=== PATIENT | male | born 1960 | race Caucasian/White ===

== ENCOUNTER → 2020-10-06 13:41 | Outpatient (BNVA) | payer OTHER, SELFPAY | PROVIDERS: PCP Internal Medicine; Visit Provider Surgery Vascular Surgery ==

== ENCOUNTER 2023-03-15 14:53 | Outpatient (AMB) | payer OTHER, SELFPAY ==
--- NOTE | 2023-03-15 14:56 | A.OFFVIS_ITS ---
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 Estevez. He has a past medical history of hyperlipidemia, hypertension, and cardiac valve repair. He presents to the office today as a new patient for an elevated PSA. In discussion with the patient today reports to be doing and feeling well. He reports having annual blood work with his PCP and noting an elevated PSA thus his referral here. In review of patient's chart it appears PSA 02/25--6.0. He reports previously following up with Dr. Austin in the past for other urological issues. When asked he does report episodes of nocturia however relates this to drinking his seltzer water prior to bed. He otherwise denies no urinary issues or concerns at this time. When asked he denies urinary urgency, urinary frequency, incontinence, hematuria, dysuria, foul smelling urine, changes to urinary stream, flank pain, fever, and or chills. He is happy with his current voiding parameters. In office urinalysis results reviewed with the patient today. Discussed redraw of PSA with no sex the night before, no caffeine morning of, and no heavy lifting 1-2 days prior. SHAILA offered however deferred. Discussed at length potential causes for elevated PSA. Patient discusses also having a home at the [facility] where he likes to spend most of his time. Patient otherwise denies any other issues or concerns at this time. Review of Systems Const All systems reviewed & are unremarkable except as noted in HPI and below Reports no additional complaints Eyes Reports no additional complaints ENT Reports no additional complaints Card Reports as per HPI Resp Reports no additional complaints GI Reports no additional complaints Reports as per HPI Musc Reports no additional complaints Neuro Reports no additional complaints Psych Reports no additional complaints Endo Reports no additional complaints Fabricio/Lymph Reports no additional complaints Aller/Immun Reports no additional complaints Physical Exam Const General: cooperative, healthy appearing, comfortable, no acute distress, well developed, alert and awake Orientation/consciousness: patient oriented x3 Limitations: no limitations HEENT Head: Yes normal to inspection, Yes normocephalic and Yes atraumatic Ears: hearing grossly normal bilaterally Eyes General: appearance normal, both eyes and all related structures Neck Neck: Yes normal visual inspection and Yes trachea midline Chest Chest palpation & inspection: normal inspection of the chest Resp Effort & Inspection: normal respiratory effort and able to speak in complete sentences Cardio Rate: regular rate GI Inspection: Yes normal to inspection General: Yes no CVA tenderness Back/Spine/Pelvis Back: no CVA tenderness Skin General skin exam: no rashes or lesions noted Neuro General: patient oriented x3 Extrem General: Yes normal to inspection Psych Appearance: grossly normal and well kempt Mental Status: mental status grossly normal Speech and movement: Normal speech and movement present and Clear speech present Affect: normal affect Attitude: cooperative Thought process: Normal thought process present Thought content: Normal thought content present Insight: Fair insight present (Psych) Judgement: Fair judgement present (Psych) Results AMB Urinalysis, Automated UA Leukoctes 0 Britta/uL Last Edit by Cloak on 03/15/23 15:13 UA Nitrite Negative Last Edit by Cloak on 03/15/23 15:13 UA Urobilinogen 1 mg/dL Last Edit by Cloak on 03/15/23 15:13 UA Protein 0 mg/dL Last Edit by Cloak on 03/15/23 15:13 UA pH 6.0 Last Edit by Cloak on 03/15/23 15:13 UA Blood 0 Robinson/uL Last Edit by Cloak on 03/15/23 15:13 UA Specific [place] 1.015 Last Edit by Cloak on 03/15/23 15:13 UA Ketone Negative Last Edit by Cloak on 03/15/23 15:13 UA Bilirubin 0 mg/dL Last Edit by Cloak on 03/15/23 15:13 UA Glucose 0 mg/dL Last Edit by Cloak on 03/15/23 15:13 Results Reviewed Results Reviewed: Laboratory Last Values Urine pH (Auto) 6.0 03/15/23 14:57 Specific [place] (Auto) 1.015 03/15/23 14:57 Urine Protein (Auto) 0 mg/dL 03/15/23 14:57 Glucose (UA)(Auto) 0 mg/dL 03/15/23 14:57 Urine Ketones (Auto) Negative 03/15/23 14:57 Urine Blood (Auto) 0 Robinson/uL 03/15/23 14:57 Urine Nitrite (Auto) Negative 03/15/23 14:57 Urine Bilirubin (Auto) 0 mg/dL 03/15/23 14:57 Urine Urobilinogen (Auto) 1 mg/dL 03/15/23 14:57 Leukocyte Esterase (Auto) 0 Britta/uL 03/15/23 14:57 Assessment & Plan Assessment & Plan (1) Elevated PSA: Code(s): R97.20 - Elevated prostate specific antigen [PSA] (2) Nocturia: Code(s): R35.1 - Nocturia Plan In office urinalysis results reviewed with the patient today; as noted above. Discussed at length potential causes for elevated PSA. Discussed obtaining redraw of PSA with no sex the night before, no heavy lifting 24-48 hours prior to lab draw, and no caffeine morning of lab draw. Discussed obtaining retroperitoneal ultrasound for further assessment evaluation. SHAILA offered however deferred. Patient denies any bothersome urinary issues Patient reports be happy with current voiding parameters. Follow-up in 1 month with labs and imaging to be completed prior; or sooner with any issues, concerns, and or questions. Orders: Orders AMB Urinalysis Automated Today Z13.9 - Encounter for screening, unspecified Coding Level of Care Code New Pt Level 3 (99523) Diagnoses Elevated PSA R97.20 Nocturia R35.1
== END 2023-03-15 15:32 | disposition home or self-care (01) ==
PROVIDERS: PCP Internal Medicine; Visit Provider Nurse Practitioner Family
DX: R97.20 Elevated prostate specific antigen [PSA] (principal); R35.1 Nocturia
CPT/HCPCS: 99203

== ENCOUNTER → 2023-03-15 14:53 | Outpatient (BNVA) | payer OTHER, SELFPAY | PROVIDERS: PCP Internal Medicine; Visit Provider Nurse Practitioner Family | DX: R97.20 Elevated prostate specific antigen [PSA] (principal); R35.1 Nocturia | CPT/HCPCS: 81003 ==

== ENCOUNTER 2023-03-16 09:35 | Outpatient (REF) | payer OTHER, SELFPAY ==
[2023-03-20 11:33] LABS: Free Prostate Spec Ag 0.9 ng/mL; Percent Free Prostate Spec Ag 24 % (calc) (>25); Prostate Specific Ag Total 3.8 ng/mL (< OR = 4.0)
== END 2023-03-16 09:36 | disposition home or self-care (01) ==
LOC: HO.10HDL 09:35
PROVIDERS: Visit Provider Nurse Practitioner Family
DX: R97.20 Elevated prostate specific antigen [PSA] (principal); Z12.5 Encounter for screening for malignant neoplasm of prostate
CPT/HCPCS: 36415; 84153; 84154

== ENCOUNTER 2023-03-31 13:54 | Outpatient (REF) | payer OTHER, SELFPAY ==
--- NOTE | ~2023-03-31 | US_ITS ---
EXAMINATION: US RETROPERITONEAL COMPLETE (RENAL) CLINICAL INFORMATION: Nocturia. COMPARISON: None available. TECHNIQUE: Real-time imaging of the kidneys and bladder. Limited visualization due to bowel gas. FINDINGS: RIGHT KIDNEY: 12.7 x 6.7 x 5.3 cm (SAG x AP x TRV). No hydronephrosis. No renal calculi. Renal cortical thickness is normal. Limited visualization. There is a 1.1 cm lateral cyst with benign features. There is a 0.7 cm medial midpole cyst with benign features. Lateral 1.1 cm exophytic midpole cyst with benign features. There is no indication for follow up imaging. LEFT KIDNEY: 12.4 x 6.3 x 5.1 cm (SAG x AP x TRV). No hydronephrosis. No renal calculi. Renal cortical thickness is normal. Limited visualization. Lower pole 0.8 cm cyst with benign features. There is no indication for follow up imaging. BLADDER: Well distended. Diffuse thickening and irregularity with trabeculation of the bladder wall. Bilateral ureteral jets are demonstrated. Prevoid bladder volume is 404 mL. Postvoid bladder volume is 41 mL. ADDITIONAL FINDINGS: Prostate volume 59 mL. US/US retroperitoneal comp IMPRESSION: 1. No hydronephrosis. No renal calculi. 2. Diffuse thickening and irregularity with trabeculation of the bladder wall. Enlarged prostate with volume 59 mL. Postvoid bladder volume 41 mL.
== END 2023-03-31 13:55 | disposition home or self-care (01) ==
LOC: HO.US 13:54
PROVIDERS: PCP Internal Medicine; Visit Provider Nurse Practitioner Family
DX: R35.1 Nocturia (principal)
CPT/HCPCS: 76770

== ENCOUNTER 2023-04-14 08:43 | Outpatient (AMB) | payer OTHER, SELFPAY ==
--- NOTE | 2023-04-14 09:04 | A.OFFVIS_ITS ---
Intake Intake Visit Reasons: 4w/US/PSA(set) Intake Note: Patient is Present for Follow Up us/psa/pvr Urology Medication: none Antibiotic Allergies:none Blood Thinners:none PVR: Allergies No Known Allergies Allergy (Verified 04/14/23 11:32) Medication List - Last Reconciled 04/14/23 by SHAJI Jaramillo-JONNY carvedilol mg PO finasteride 5 mg PO DAILY 90 days lisinopril 20 mg PO DAILY pravastatin 80 mg PO DAILY HPI HPI Comments History of Present Illness Details Tom is a very pleasant 62-year-old male patient of Dr. Estevez who was accompanied with his significant other at today's office visit. He has a past medical history of hyperlipidemia, hypertension, and cardiac valve repair. He presents to the office today for follow-up. Of note, patient was seen approximately 1 month ago as a new patient for an elevated PSA at which time a retroperitoneal ultrasound was ordered for further assessment evaluation and a redraw of the patient's PSA. These results reviewed with the patient and his significant other today. Right kidney with no hydronephrosis or calculi. There is a 1.1 cm lateral cyst with benign features. There is a 0.7 cm medial midpole cyst with benign features. Lateral 1.1 cm exophytic midpole cyst with benign features. There is no indication for follow up imaging per radiology report. Left kidney with no hydronephrosis or renal calculi. Lower pole 0.8 cm cyst with benign features. There is no indication for follow up imaging per radiology report. The bladder is well distended. Diffuse thickening and irregularity which trabeculations of the bladder wall. Bilateral ureteral jets are demonstrated. Pre void bladder volume is approximately 400 mL. Postvoid bladder volume is approximately 40 mL. Prostate volume is approximately 60 mL. PSAs are as follows: 02/25--6.0 03/27--4.6 % free 24% In discussion with the patient today reports to be doing and feeling well. Discussed at length potential causes of elevated PSA. PCPT risk calculator reviewed with the patient and his significant other today. 83% chance prostate biopsy negative, 13% biopsy with low-grade prostate cancer, and 4% high-grade prostate cancer. When asked he does report episodes of nocturia however relates this to drinking his seltzer water prior to bed. He otherwise denies no urinary issues or concerns at this time. When asked he denies urinary urgency, urinary frequency, incontinence, hematuria, dysuria, foul smelling urine, changes to urinary stream, flank pain, fever, and or chills. He is happy with his current voiding parameters. In office urinalysis results reviewed with the patient today. Discussed at length risks and benefits of surveillance monitoring verses prostate biopsy verses trial finasteride. He otherwise offers no issues or concerns at this time. Review of Systems Const All systems reviewed & are unremarkable except as noted in HPI and below Reports no additional complaints Eyes Reports no additional complaints ENT Reports no additional complaints Card Reports as per HPI Resp Reports no additional complaints GI Reports no additional complaints Reports as per HPI Musc Reports no additional complaints Neuro Reports no additional complaints Psych Reports no additional complaints Endo Reports no additional complaints Fabricio/Lymph Reports no additional complaints Aller/Immun Reports no additional complaints Physical Exam Const General: cooperative, healthy appearing, comfortable, no acute distress, well developed, alert and awake Orientation/consciousness: patient oriented x3 Limitations: no limitations HEENT Head: Yes normal to inspection, Yes normocephalic and Yes atraumatic Ears: hearing grossly normal bilaterally Eyes General: appearance normal, both eyes and all related structures Neck Neck: Yes normal visual inspection and Yes trachea midline Chest Chest palpation & inspection: normal inspection of the chest Resp Effort & Inspection: normal respiratory effort and able to speak in complete sentences Cardio Rate: regular rate GI Inspection: Yes normal to inspection General: Yes no CVA tenderness Back/Spine/Pelvis Back: no CVA tenderness Skin General skin exam: no rashes or lesions noted Neuro General: patient oriented x3 Extrem General: Yes normal to inspection Psych Appearance: grossly normal and well kempt Mental Status: mental status grossly normal Speech and movement: Normal speech and movement present and Clear speech present Affect: normal affect Attitude: cooperative Thought process: Normal thought process present Thought content: Normal thought content present Insight: Fair insight present (Psych) Judgement: Fair judgement present (Psych) Results Reviewed Results Reviewed: Date of Service: 03/31/23 Procedure(s): US retroperitoneal comp EXAMINATION: US RETROPERITONEAL COMPLETE (RENAL) FINDINGS: RIGHT KIDNEY: 12.7 x 6.7 x 5.3 cm (SAG x AP x TRV). No hydronephrosis. No renal calculi. Renal cortical thickness is normal. Limited visualization. There is a 1.1 cm lateral cyst with benign features. There is a 0.7 cm medial midpole cyst with benign features. Lateral 1.1 cm exophytic midpole cyst with benign features. There is no indication for follow up imaging. LEFT KIDNEY: 12.4 x 6.3 x 5.1 cm (SAG x AP x TRV). No hydronephrosis. No renal calculi. Renal cortical thickness is normal. Limited visualization. Lower pole 0.8 cm cyst with benign features. There is no indication for follow up imaging. BLADDER: Well distended. Diffuse thickening and irregularity with trabeculation of the bladder wall. Bilateral ureteral jets are demonstrated. Prevoid bladder volume is 404 mL. Postvoid bladder volume is 41 mL. ADDITIONAL FINDINGS: Prostate volume 59 mL. IMPRESSION: 1. No hydronephrosis. No renal calculi. 2. Diffuse thickening and irregularity with trabeculation of the bladder wall. Enlarged prostate with volume 59 mL. Postvoid bladder volume 41 mL. Assessment & Plan Assessment & Plan (1) Elevated PSA: Code(s): R97.20 - Elevated prostate specific antigen [PSA] (2) Renal cyst: Code(s): N28.1 - Cyst of kidney, acquired (3) Bladder trabeculation: Code(s): N32.89 - Other specified disorders of bladder Plan In office urinalysis results reviewed with the patient today; as noted above. PVR 0 mL. Recent retroperitoneal ultrasound results reviewed with the patient today; as noted above. Recent PSA results reviewed with the patient today; as noted above. Discussed at length potential causes for elevated PSA. Discussed at length surveillance monitoring versus prostate biopsy verses trial finasteride; discussed risks and benefits of these interventions at length. Patient denies any bothersome urinary issues or concerns at this time. Patient reports be happy with current voiding parameters. Start finasteride as discussed and prescribed. Will obtain PSA in 4 months. Follow-up in 4 months with imaging to be completed prior; or sooner with any issues, concerns, and or questions. Orders: Orders AMB Urinalysis Automated 04/14/23 Z13.9 - Encounter for screening, unspecified AMB Post Void Residual by ultrasound 04/14/23 R35.1 - Nocturia PSA,Total (Free>4and<10) 4 Months R97.20 - Elevated prostate specific antigen [PSA] Medications: New finasteride 5 mg PO DAILY 90 tabs 1RF 90 days N40.1 - Benign prostatic hyperplasia with lower urinary tract symptoms, R33.9 - Retention of urine, unspecified Patient Instructions: The patient had an opportunity to ask questions regarding the treatment plan. All questions were answered. Physical exam, labs, and imaging were discussed and reviewed in detail. As well as risks, benefits, and discussion of treatment choices. No major barriers to understanding were identified. The patient expressed understanding and agreement with the above treatment plan. The patient was made aware they should contact our office by phone for worsening of their current condition, the appearance of new symptoms, or with any questions or concerns. Compliance is encouraged with any medications and follow up testing that is ordered. It is a privilege to be allowed the opportunity to participate in? your urological care.? Again, if you have any questions or concerns If you have any questions or concerns please do not hesitate to contact me. The office is [phone]. This note is constructed using voice recognition software. While every effort has been made to ensure accuracy district sales representative errors may have been included. Yours sincerely, BALTA Jaramillo Coding Level of Care Code Est Pt Level 4 (41683) Diagnoses Elevated PSA R97.20 Renal cyst N28.1 Bladder trabeculation N32.89
== END 2023-04-14 09:43 | disposition home or self-care (01) ==
PROVIDERS: PCP Internal Medicine; Visit Provider Nurse Practitioner Family
DX: R97.20 Elevated prostate specific antigen [PSA] (principal); N28.1 Cyst of kidney, acquired; N32.89 Other specified disorders of bladder
CPT/HCPCS: 99214

== ENCOUNTER → 2023-04-14 08:43 | Outpatient (BNVA) | payer OTHER, SELFPAY | PROVIDERS: PCP Internal Medicine; Visit Provider Nurse Practitioner Family ==

== ENCOUNTER 2023-08-15 11:31 | Outpatient (REF) | payer OTHER, SELFPAY ==
[2023-08-15 13:38] LABS: PSA,Total (Free>4and<10) 4.99 ng/mL (0.00-4.00)
[2023-08-17 11:08] LABS: Free Prostate Spec Ag 0.7 ng/mL; Percent Free Prostate Spec Ag 16 % (calc) (>25); Prostate Specific Ag Total 4.4 ng/mL (< OR = 4.0)
== END 2023-08-15 11:32 | disposition home or self-care (01) ==
LOC: HO.LAB 11:31
PROVIDERS: PCP Internal Medicine; Visit Provider Nurse Practitioner Family
DX: Z12.5 Encounter for screening for malignant neoplasm of prostate (principal); R97.20 Elevated prostate specific antigen [PSA]
CPT/HCPCS: 36415; 84153; 84154

== ENCOUNTER 2023-08-17 08:33 | Outpatient (AMB) | payer OTHER, SELFPAY ==
--- NOTE | 2023-08-17 08:34 | A.OFFVIS_ITS ---
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 Estevez. He has a past medical history of hyperlipidemia, hypertension, and cardiac valve repair. He is being follow-up on via video telehealth for his elevated PSA. Of note, patient was seen approximately 4 months ago at which time he was started on finasteride 5 mg daily. Recent PSA results reviewed with the patient and his significant other today. PSAs are as follows 02/25--6.0 03/27--4.6 % free 24% 08/25--5.0 % free 16% In discussion with the patient today reports to be doing and feeling well. D iscussed at length potential causes of elevated PSA. When asked he does report compliance with 5 mg of finasteride prescribed. PCP T risk calculator reviewed 65% chance prostate biopsy is negative for cancer, 27% chance of low-grade prostate cancer, and 8% chance of high-grade prostate cancer. Discussed further treatment options with prostate biopsy verses prostate MRI versus surveillance monitoring. These interventions were discussed at length. Risks and benefits of these interventions were discussed. He otherwise denies urinary urgency, urinary frequency, incontinence, hematuria, dysuria, foul smelling urine, changes to urinary stream, flank pain, fever, and or chills. He is happy with his current voiding parameters. He offers no issues or concerns at this time. Review of Systems Const All systems reviewed & are unremarkable except as noted in HPI and below Reports no additional complaints Eyes Reports no additional complaints ENT Reports no additional complaints Card Reports as per HPI Resp Reports no additional complaints GI Reports no additional complaints Reports as per HPI Musc Reports no additional complaints Neuro Reports no additional complaints Psych Reports no additional complaints Endo Reports no additional complaints Fabricio/Lymph Reports no additional complaints Aller/Immun Reports no additional complaints Physical Exam Const General: cooperative, healthy appearing, comfortable, no acute distress, well developed, alert and awake Orientation/consciousness: patient oriented x3 Limitations: no limitations Resp Effort & Inspection: normal respiratory effort and able to speak in complete sentences Neuro General: patient oriented x3 Psych Appearance: grossly normal and well kempt Mental Status: mental status grossly normal Speech and movement: Normal speech and movement present and Clear speech present Affect: normal affect Attitude: cooperative Thought process: Normal thought process present Thought content: Normal thought content present Insight: Fair insight present (Psych) Judgement: Fair judgement present (Psych) Assessment & Plan Assessment & Plan (1) Elevated PSA: Code(s): R97.20 - Elevated prostate specific antigen [PSA] (2) Bladder trabeculation: Code(s): N32.89 - Other specified disorders of bladder (3) Nocturia: Code(s): R35.1 - Nocturia Plan Recent PSA results reviewed with the patient and his significant other today; as noted above. Discussed at length potential causes for elevated PSA Discussed further treatment options with MRI versus prostate biopsy; this was discussed at [facility]; risks and benefits of these interventions were discussed. Will obtain redraw of PSA with no sex the night before, no caffeine morning of, and no heavy lifting 1-2 days prior. Continue finasteride 5 mg daily as discussed and prescribed. He otherwise denies any bothersome urinary issues or concerns. He reports be happy with current voiding parameters. Will obtain MRI of the prostate Follow-up in 4-8 weeks with imaging and labs to be completed prior; or sooner with any issues, concerns, and or questions. Orders: Orders PSA,Total (Free>4and<10) Today R97.20 - Elevated prostate specific antigen [PSA] Patient Instructions: The patient had an opportunity to ask questions regarding the treatment plan. All questions were answered. Physical exam, labs, and imaging were discussed and reviewed in detail. As well as risks, benefits, and discussion of treatment choices. No major barriers to understanding were identified. The patient expressed understanding and agreement with the above treatment plan. The patient was made aware they should contact our office by phone for worsening of their current condition, the appearance of new symptoms, or with any questions or concerns. Compliance is encouraged with any medications and follow up testing that is ordered. It is a privilege to be allowed the opportunity to participate in? your urological care.? Again, if you have any questions or concerns If you have any questions or concerns please do not hesitate to contact me. The office is [phone]. This note is constructed using voice recognition software. While every effort has been made to ensure accuracy manufacturing engineer assembly errors may have been included. Yours sincerely, AJIT Jaramillo Telehealth Telehealth Location of provider rendering services: practice address Location of patient: address on file Patient Identification confirmed using: Name, : Yes Telehealth method: video Patient verbally consented to treatment: Yes Patient verbally consented to billing insurance company: Yes Patient informed of any privacy concerns related to visit: Yes Minutes spent on Phone/Video with Pt.: 25 Coding Level of Care Code Tele Est Pt Level 4 (38574) Diagnoses Elevated PSA R97.20 Bladder trabeculation N32.89 Nocturia R35.1
== END 2023-08-17 09:29 | disposition home or self-care (01) ==
LOC: HO.HUSH 08:34
PROVIDERS: PCP Internal Medicine; Referring Provider Internal Medicine; Visit Provider Nurse Practitioner Family
DX: R97.20 Elevated prostate specific antigen [PSA] (principal); N32.89 Other specified disorders of bladder; R35.1 Nocturia
CPT/HCPCS: 99213

== ENCOUNTER → 2023-08-17 08:33 | Outpatient (BNVA) | payer OTHER, SELFPAY | PROVIDERS: PCP Internal Medicine; Visit Provider Nurse Practitioner Family ==

== ENCOUNTER 2023-10-05 10:13 | Outpatient (REF) | payer OTHER, SELFPAY ==
[2023-10-05 11:27] LABS: PSA,Total (Free>4and<10) 5.07 ng/mL (0.00-4.00)
[2023-10-09 12:33] LABS: Free Prostate Spec Ag 0.6 ng/mL; Percent Free Prostate Spec Ag 13 % (calc) (>25); Prostate Specific Ag Total 4.8 ng/mL (< OR = 4.0)
== END 2023-10-05 10:14 | disposition home or self-care (01) ==
LOC: HO.LAB 10:13
PROVIDERS: PCP Internal Medicine; Visit Provider Nurse Practitioner Family
DX: Z12.5 Encounter for screening for malignant neoplasm of prostate (principal); R97.20 Elevated prostate specific antigen [PSA]
CPT/HCPCS: 36415; 84153; 84154

== ENCOUNTER 2023-11-21 11:45 | Outpatient (AMB) | payer OTHER, SELFPAY ==
--- NOTE | 2023-11-21 11:41 | A.OFFVIS_ITS ---
Intake Visit Reasons: 2M follow up/ Labs/MRI Intake Note: Patient presents for follow up labs and MRI results PSA: 4.8 Imagin10/13/23 Urology Medication: Finasteride Antibiotic Allergies:none Blood Thinners: Aspirin Tiltrotor Crew Chief Required: No Accompanied by: Unknown Allergies No Known Allergies Allergy (Verified 11/21/23 12:20) Medication List - Last Reconciled 11/21/23 by SHAJI Jaramillo- aspirin 81 mg PO DAILY carvedilol 12.5 mg PO BID finasteride 5 mg PO DAILY 90 days lisinopril 10 mg PO DAILY rosuvastatin 40 mg PO DAILY HPI Comments Details: Tom is a very pleasant 63-year-old male patient of Dr. Estevez who was accompanied by his significant other at today's office visit. He has a past medical history of hyperlipidemia, hypertension, and cardiac valve repair. He presents to the office today for follow-up of his elevated PSA. Recent PSA and MRI results reviewed with the patient today. Ill-defined T2 hypointense lesion with obscured margins measuring 1.7 cm in the left posterior lateral mid gland with moderate ADC and visualize signal abnormality (PI-RADS 3). In discussion with the patient today he reports compliance with finasteride 5 mg daily as pr escribed. Discussed at length surveillance monitoring verses prostate that biopsy. Risks and benefits of these interventions were discussed at length. All questions were answered. PSAs are as follows: 02/25 6.0, 03/27 3.8 % free 24%, 08/26 5.0 % free 16%, 10/26 5.1 % free 13%. In discussion with the patient today reports to be doing and feeling well. Discussed at length potential causes of elevated PSA. He otherwise denies urinary urgency, urinary frequency, incontinence, hematuria, dysuria, foul smelling urine, changes to urinary stream, flank pain, fever, and or chills. He is happy with his current voiding parameters. Previous workup has included a retroperitoneal ultrasound noting bilateral kidneys with no hydronephrosis and no renal calculi. There is a 1.1 cm lateral cyst with benign features. There is a 0.7 cm medial midpole cyst with benign features. Lateral 1.1 cm exophytic midpole cyst with benign features. There is no indication for follow up imaging. Per radiology report. The bladder is well distended. Diffuse thickening and irregularity with trabeculations. Bilateral ureteral jets are demonstrated. Pre void bladder volume is approximately 400 mL. Postvoid bladder volume is approximately 40 mL. Prostate volume is approximately 60 mL. He offers no issues or concerns at this time. Review of Systems Const All systems reviewed & are unremarkable except as noted in HPI and below Reports no additional complaints Eyes Reports no additional complaints ENT Reports no additional complaints Card Reports as per HPI Resp Reports no additional complaints GI Reports no additional complaints Reports as per HPI Musc Reports no additional complaints Neuro Reports no additional complaints Psych Reports no additional complaints Endo Reports no additional complaints Fabrciio/Lymph Reports no additional complaints Aller/Immun Reports no additional complaints Physical Exam Const General: cooperative, healthy appearing, comfortable, no acute distress, well developed, alert and awake Nutritional Appearance: average body habitus Orientation/consciousness: patient oriented x3 Limitations: no limitations HEENT Head: Yes normal to inspection, Yes normocephalic and Yes atraumatic Ears: hearing grossly normal bilaterally Eyes General: appearance normal, both eyes and all related structures Neck Neck: Yes normal visual inspection and Yes trachea midline Chest Chest palpation & inspection: normal inspection of the chest Resp Effort & Inspection: normal respiratory effort and able to speak in complete sentences Cardio Rate: regular rate GI Inspection: Yes normal to inspection General: Yes no CVA tenderness Back/Spine/Pelvis Back: no CVA tenderness Skin General skin exam: no rashes or lesions noted Neuro General: patient oriented x3 Extrem General: Yes normal to inspection Psych Appearance: grossly normal and well kempt Mental Status: mental status grossly normal Speech and movement: Normal speech and movement present and Clear speech present Affect: normal affect Attitude: cooperative Thought process: Normal thought process present Thought content: Normal thought content present Insight: Fair insight present (Psych) Judgement: Fair judgement present (Psych) Results AMB Urinalysis, Automated UA Leukoctes 0 Britta/uL Last Edit by [email or web address] on 11/21/23 12:09 UA Nitrite Negative Last Edit by [email or web address] on 11/21/23 12:09 UA Urobilinogen 0.2 mg/dL Last Edit by [employer] on 11/21/23 12:09 UA Protein 0 mg/dL Last Edit by [employer] on 11/21/23 12:09 UA pH 6.0 Last Edit by [employer] on 11/21/23 12:09 UA Blood 0 Robinson/uL Last Edit by Andrew Blum on 11/21/23 12:09 UA Specific [place] 1.010 Last Edit by Andrew Blum on 11/21/23 12:09 UA Ketone Negative Last Edit by Andrew Blum on 11/21/23 12:09 UA Bilirubin 0 mg/dL Last Edit by Andrew Blum on 11/21/23 12:09 UA Glucose 0 mg/dL Last Edit by Andrew Blum on 11/21/23 12:09 Results Reviewed Results Reviewed: Laboratory Last Values Urine pH (Auto) 6.0 11/21/23 11:43 Specific [place] (Auto) 1.010 11/21/23 11:43 Urine Protein (Auto) 0 mg/dL 11/21/23 11:43 Glucose (UA)(Auto) 0 mg/dL 11/21/23 11:43 Urine Ketones (Auto) Negative 11/21/23 11:43 Urine Blood (Auto) 0 Robinson/uL 11/21/23 11:43 Urine Nitrite (Auto) Negative 11/21/23 11:43 Urine Bilirubin (Auto) 0 mg/dL 11/21/23 11:43 Urine Urobilinogen (Auto) 0.2 mg/dL 11/21/23 11:43 Leukocyte Esterase (Auto) 0 Britta/uL 11/21/23 11:43 Assessment & Plan Assessment & Plan (1) Bladder trabeculation: Code(s): N32.89 - Other specified disorders of bladder Category: Medical (2) Renal cyst: Code(s): N28.1 - Cyst of kidney, acquired Category: Medical (3) Elevated PSA: Code(s): R97.20 - Elevated prostate specific antigen [PSA] Category: Medical Plan: Plan Risks and benefits regarding trans rectal ultrasound with prostate biopsy were discussed.? Options of continued surveillance, no treatment and biopsy were of fered. The risks include but are not limited to, urinary tract infection, sepsis, difficulty urinating, bleeding into the rectum or bladder that requires intervention and transfusion,and failure to diagnose prostate cancer. The patient understands the options and the risks involved. They wish to proceed. Printed information was provided to ensure he remains off anticoagulation for the appropriate length of time. He may require cardiology or PCP clearance.? An antibiotic will be administered prior to, and following the procedure Plan Recent PSA results reviewed and trended with the patient and his significant other today; as noted above. Recent MRI results reviewed with the patient today; as noted above. Continue finasteride 5 mg daily as discussed and prescribed. Discussed further intervention with prostate MRI verses surveillance monitoring; risks and benefits of these interventions were discussed at length. All questions were answered Prescription provided for antibiotic therapy prior to prostate biopsy. Will schedule for prostate biopsy as discussed Follow-up per doctors orders s/p procedure; or sooner with any issues, concerns, or questions. Orders: Orders AMB Urinalysis Automated Today Z13.9 - Encounter for screening, unspecified Patient Instructions: The patient had an opportunity to ask questions regarding the treatment plan. All questions were answered. Physical exam, labs, and imaging were discussed and reviewed in detail. As well as risks, benefits, and discussion of treatment choices. No major barriers to understanding were identified. The patient expressed understanding and agreement with the above treatment plan. The patient was made aware they should contact our office by phone for worsening of their current condition, the appearance of new symptoms, or with any questions or concerns. Compliance is encouraged with any medications and follow up testing that is ordered. It is a privilege to be allowed the opportunity to participate in? your urological care.? Again, if you have any questions or concerns If you have any questions or concerns please do not hesitate to contact me. The office is [phone]. This note is constructed using voice recognition software. While every effort has been made to ensure accuracy holter scanning technician errors may have been included. Yours sincerely, BALTA Jaramillo Coding Level of Care Code Est Pt Level 4 (15967) Diagnoses Bladder trabeculation N32.89 Renal cyst N28.1 Elevated PSA R97.20
== END 2023-11-21 12:24 | disposition home or self-care (01) ==
PROVIDERS: PCP Internal Medicine; Visit Provider Nurse Practitioner Family
DX: N32.89 Other specified disorders of bladder (principal); N28.1 Cyst of kidney, acquired; R97.20 Elevated prostate specific antigen [PSA]; Z13.9 Encounter for screening, unspecified
CPT/HCPCS: 99214

== ENCOUNTER → 2023-11-21 11:45 | Outpatient (BNVA) | payer OTHER, SELFPAY | PROVIDERS: PCP Internal Medicine; Visit Provider Nurse Practitioner Family | DX: N32.89 Other specified disorders of bladder (principal); N28.1 Cyst of kidney, acquired; R97.20 Elevated prostate specific antigen [PSA] | CPT/HCPCS: 81003 ==

== ENCOUNTER 2024-01-23 07:40 | Outpatient (REF) | payer OTHER, SELFPAY ==
[2024-01-23] MEDS: levoFLOXacin 500 MG TABLET PO (08:22)
[2024-01-23] MEDS: Lidocaine HCl 1 % MPF 5 ML VIAL 10 ML SUBCUT (08:23)
--- NOTE | 2024-01-23 08:34 | P.OP_ITS ---
Operative Note Operative Note Date of Service: 01/23/24 Narrative: Preoperative diagnosis: Elevated PSA Postoperative diagnosis: Elevated PSA Procedure: 1. transrectal ultrasound measurement of prostate 2. transrectal ultrasound-guided pudendal nerve block 3. transrectal ultrasound-guided prostate biopsy 12 core Surgeon: Dr. Ruddy Austin Anesthetic: 10cc 1% lidocaine Indications for procedure: Elevated PSA 5.1 13% Counselling: Technical aspects, risks and benefits of proposed procedure were discussed in full. All questions have been answered, written consent has been obtained and patient agrees to proceed. Procedure: The patient was brought into the procedure area and placed in a left lateral decubitus position. Patient identity confirmed. Perioperative antibiotics confirmed. Safety pause time out performed. SHAILA was performed to dilate rectal sphincter Iodine 10cc with 60 cc gel was placed per rectum to reduce infection risk using a catheter tip syringe. 8 Hz Momo rectal end-fire ultrasound probe was placed transrectally without difficulty. The prostate was visualized. Seminal vesicles were normal. Prostate margins were clearly demarcated. Bladder was seen superiorly. No cystic structures were noted No calcifications were noted at the surgical margin The prostate was otherwise heterogenous in nature -= marked posterior zone The prostate was measured in 3 dimensions Prostatic Width: 5.7 cm Prostatic Height: 6.2 cm Urethral Length: 4.8 cm Total volume equals : 60 ml An ultrasound-guided pudendal nerve block was performed using a 22 gauge spinal needle in the sagittal plane. 4 cc of 1% lidocaine placed at the junction of each seminal vesicle and 2 cc placed at the apex of the prostate. A 12 core biopsy was performed with 6 cores each side using an 18 gauge prostate biopsy gun. Two cores each were taken at the prostate apex, mid and base on each side. Cores were spaced between lateral and medial aspects. Each core was examined as placed on specimen foam as part of supervisor type disk quality control to ensure a minimum 1 cm of length and minimal discontinuity. He tolerated the procedure well with minimal rectal bleeding. Blood pressure remained stable following procedure. He was able to ambulate to bathroom after 5 minutes. Printed instructions regarding antibiotic use and common adverse events from the procedure such as low-grade temperature, potential infection and bleeding were given. He understands to call the office or go to an emergency room should any of these events arise. Pathology: 12 core prostate biopsy. CPT code 03141: Transrectal ultrasound; this is a diagnostic test for evaluation of the prostate and surrounding structures, looking for abnormalities or suspicious areas worrisome for cancer CPT code 90104: Biopsy, prostate; needle or punch, single or multiple, any approach CPT code 97966: Ultrasonic guidance for needle placement (eg, biopsy, aspiration, injection, localization device), imaging supervision and interpretation
== END 2024-01-23 07:41 | disposition home or self-care (01) ==
LOC: HO.US 07:40
PROVIDERS: PCP Internal Medicine; Visit Provider Urology
DX: R97.20 Elevated prostate specific antigen [PSA] (principal); R93.89 Abnormal findings on diagnostic imaging of other specified body structures
CPT/HCPCS: 55700; 76942; 88305; 88344

== ENCOUNTER → 2024-01-23 07:40 | Outpatient (BNV) | payer OTHER, SELFPAY | PROVIDERS: PCP Internal Medicine; Visit Provider Urology | DX: R97.20 Elevated prostate specific antigen [PSA] (principal) | CPT/HCPCS: 55700; 76872 ==

== ENCOUNTER 2024-02-09 14:25 | Outpatient (AMB) | payer OTHER, SELFPAY ==
--- NOTE | 2024-02-09 14:25 | A.OFFVIS_ITS ---
Intake Visit Reasons: Prostate biopsy results Intake Note: Patient is present for Telephone Prostate biopsy Follow Up Service Line Layer Required: No Accompanied by: Self / Same As Patient Allergies No Known Allergies Allergy (Verified 02/09/24 14:30) HPI Comments Details: Emigdio is a pleasant male. He is a patient of Dr. Estevez. He seen for the following urologic conditions - elevated PSA - bladder outlet obstruction Prostate biopsy chronic inflammation Continue six-month surveillance Elevated PSA Has been followed with finasteride MRI with ill-defined T2 lesion 1.7 cm left posterolateral mid gland - PI-RADS 3 02/25 6.0, 03/27 3.8 % free 24%, 08/26 5.0 % free 16%, 10/26 5.1 % free 13%. Prior bladder ultrasound diffuse thickening with irregularity and trabeculations, prostate volume 60 cc Prostate biopsy 01/26 - chronic inflammation Review of Systems Const All systems reviewed & are unremarkable except as noted in HPI and below Reports no additional complaints Resp Reports no additional complaints GI Reports no additional complaints Reports as per HPI Musc Reports no additional complaints Physical Exam Telemedicine evaluation Appropriate responses Regular breathing rate and rhythm HEENT Head: Yes normal to inspection Ears: hearing grossly normal bilaterally Eyes General: appearance normal, both eyes and all related structures Neck Neck: Yes normal visual inspection Chest Chest palpation & inspection: normal inspection of the chest Resp Effort & Inspection: normal respiratory effort and able to speak in complete sentences Telehealth Telehealth Telehealth Platform: [facility] Location of provider rendering services: practice address Location of patient: address on file Patient Identification confirmed using: Name, : Yes Telehealth method: video Patient verbally consented to treatment: Yes Patient verbally consented to billing insurance company: Yes Patient informed of any privacy concerns related to visit: Yes Minutes spent on Phone/Video with Pt.: 15 Assessment & Plan Assessment & Plan (1) Bladder trabeculation: Code(s): N32.89 - Other specified disorders of bladder Category: Medical (2) Elevated PSA: Code(s): R97.20 - Elevated prostate specific antigen [PSA] Category: Medical Plan Six-month follow-up PSA Orders: Orders PSA,Total (Free>4and<10) 6 Months R97.20 - Elevated prostate specific antigen [PSA] Medications: Refilled finasteride 5 mg PO DAILY 90 days 90 tabs 1RF N40.1 - Benign prostatic hyperplasia with lower urinary tract symptoms, R33.9 - Retention of urine, uns pecified Patient Instructions: Imaging studies, laboratory and physical exam results were discussed and reviewed in detail. No major barriers to patient understanding were identified. An opportunity to ask questions regarding the treatment plan was provided. All questions were answered. The patient expressed understanding and agreement with the above treatment plan. The patient is aware they should contact our office by phone for worsening of their current condition or the appearance of new urologic symptoms. Compliance is encouraged with any medications and followup testing that is ordered. It is a privilege to participate in the urologic care of your patient. If you have any questions or concerns regarding treatment for the above conditions, or other urologic issues, please do not hesitate to contact me. The office telephone contact is [phone]. This note is constructed using voice recognition software. While every effort has been made to ensure accuracy computer hardware technician errors may have been included. Yours sincerely, Dr Ruddy Austin MD, [facility] - Urology Providers of Expert, Compassionate Care for the Genitourinary System Coding Level of Care Code Tele Est Pt Level 3 (68543) Diagnoses Bladder trabeculation N32.89 Elevated PSA R97.20
== END 2024-02-09 15:54 | disposition home or self-care (01) ==
LOC: HO.HUSH 14:25
PROVIDERS: PCP Internal Medicine; Visit Provider Urology
DX: N32.89 Other specified disorders of bladder (principal); R97.20 Elevated prostate specific antigen [PSA]
CPT/HCPCS: 99213

== ENCOUNTER → 2024-02-09 14:25 | Outpatient (BNVA) | payer OTHER, SELFPAY | PROVIDERS: PCP Internal Medicine; Visit Provider Urology ==

== ENCOUNTER 2024-08-08 10:19 | Outpatient (AMB) | payer OTHER, SELFPAY ==
--- NOTE | 2024-08-08 10:35 | A.OFFVIS_ITS ---
Intake Visit Reasons: 6m/PSA Intake Note: Patient presents for follow up on elevated psa PSA: 5.8 Urology Medication: Finasteride Antibiotic Allergies:none Blood Thinners: Aspirin Medical Orderly Required: No Accompanied by: Self / Same As Patient Allergies No Known Allergies Allergy (Verified 08/09/24 09:21) Medication List - Last Reconciled 08/09/24 by AJIT Jaramillo aspirin 81 mg PO DAILY carvedilol 12.5 mg PO BID finasteride 5 mg PO DAILY 90 days lisinopril 10 mg PO DAILY lisinopril 20 mg PO DAILY rosuvastatin 40 mg PO DAILY HPI Comments Details: Tom is a very pleasant 64-year-old male patient of Dr. Estevez. He has a past medical history of hyperlipidemia, hypertension, and cardiac valve repair. He presents to the office today for follow-up of his elevated PSA. Of note, patient underwent prostate biopsy with Dr. Austin 01/26 noting chronic inflammation at which time he was started in Finasteride. In discussion with the patient today reports to be doing and feeling well. He reports compliance with finasteride as prescribed. He currently denies any bothersome urinary issues or concerns. Recent PSA results reviewed with the patient today as noted and trended below. Previous workup has included MRI of the prostate 10/26 noting Ill-defined T2 hypointense lesion with obscured margins measuring 1.7 cm in the left posterior lateral mid gland with moderate ADC and visualize signal abnormality (PI-RADS 3). PSAs are as follows: 02/25 6.0, 03/27 3.8 % free 24%, 08/26 5.0 % free 16%, 10/26 5.1 % free 13%, 08/27 5.8 free 20%. Previous work up has also included a retroperitoneal ultrasound 03/27 noting bilateral kidneys with no hydronephrosis and no renal calculi. There is a 1.1 cm lateral cyst with benign features. There is a 0.7 cm medial midpole cyst with benign features. Lateral 1.1 cm exophytic midpole cyst with benign features. There is no indication for follow up imaging. Per radiology report. The bladder is well distended. Diffuse thickening and irregularity with trabeculations. Bilateral ureteral jets are demonstrated. Pre void bladder volume is approximately 400 mL. Postvoid bladder volume is approximately 40 mL. Prostate volume is approximately 60 mL. We discussed at length potential causes of elevated PSA and further work up to include repeat biopsy. He discusses his most recent trip and has just gotten back fro [facility] and will be leaving to [place] tomorrow for another vacation. He otherwise offers no issues or concerns at this time. Review of Systems Const All systems reviewed & are unremarkable except as noted in HPI and below Reports no additional complaints Eyes Reports no additional complaints ENT Reports no additional complaints Card Reports as per HPI Resp Reports no additional complaints GI Reports no additional complaints Reports as per HPI Musc Reports no additional complaints Neuro Reports no additional complaints Psych Reports no additional complaints Endo Reports no additional complaints Fabricio/Lymph Reports no additional complaints Aller/Immun Reports no additional complaints Physical Exam Const General: cooperative, healthy appearing, comfortable, no acute distress, well developed, alert and awake Nutritional Appearance: average body habitus Orientation/consciousness: patient oriented x3 Limitations: no limitations HEENT Head: Yes normal to inspection, Yes normocephalic and Yes atraumatic Ears: hearing grossly normal bilaterally Eyes General: appearance normal, both eyes and all related structures Neck Neck: Yes normal visual inspection and Yes trachea midline Chest Chest palpation & inspection: normal inspection of the chest Resp Effort & Inspection: normal respiratory effort and able to speak in complete sentences Cardio Rate: regular rate GI Inspection: Yes normal to inspection General: Yes no CVA tenderness Back/Spine/Pelvis Back: no CVA tenderness Skin General skin exam: no rashes or lesions noted Neuro General: patient oriented x3 Extrem General: Yes normal to inspection Psych Appearance: grossly normal and well kempt Mental Status: mental status grossly normal Speech and movement: Normal speech and movement present and Clear speech present Affect: normal affect Attitude: cooperative Thought process: Normal thought process present Thought content: Normal thought content present Insight: Fair insight present (Psych) Judgement: Fair judgement present (Psych) Results AMB Urinalysis, Automated UA Leukoctes 0 Britta/uL Last Edit by Andrew Blum on 08/08/24 12:05 UA Nitrite Last Edit by Andrew Blum on 08/08/24 12:05 UA Urobilinogen 0.2 mg/dL Last Edit by Andrew lBum on 08/08/24 12:05 UA Protein 0 mg/dL Last Edit by Andrew Blum on 08/08/24 12:05 UA pH 6.0 Last Edit by Andrew Blum on 08/08/24 12:05 UA Blood 0 Robinson/uL Last Edit by Andrew Blum on 08/08/24 12:05 UA Specific [place] 1.005 Last Edit by Andrew Blum on 08/08/24 12:05 UA Ketone Negative Last Edit by Andrew Blum on 08/08/24 12:05 UA Bilirubin 0 mg/dL Last Edit by Andrew Blum on 08/08/24 12:05 UA Glucose 0 mg/dL Last Edit by Andrew Blum on 08/08/24 12:05 Results Reviewed Results Reviewed: Laboratory Last Values Urine pH (Auto) 6.0 08/08/24 12:04 Specific [place] (Auto) 1.005 08/08/24 12:04 Urine Protein (Auto) 0 mg/dL 08/08/24 12:04 Glucose (UA)(Auto) 0 mg/dL 08/08/24 12:04 Urine Ketones (Auto) Negative 08/08/24 12:04 Urine Blood (Auto) 0 Robinson/uL 08/08/24 12:04 Urine Bilirubin (Auto) 0 mg/dL 08/08/24 12:04 Urine Urobilinogen (Auto) 0.2 mg/dL 08/08/24 12:04 Leukocyte Esterase (Auto) 0 Britta/uL 08/08/24 12:04 Assessment & Plan Assessment & Plan (1) Elevated PSA: Code(s): R97.20 - Elevated prostate specific antigen [PSA] Category: Medical (2) Bladder trabeculation: Code(s): N32.89 - Other specified disorders of bladder Category: Medical (3) Renal cyst: Code(s): N28.1 - Cyst of kidney, acquired Category: Medical Plan Recent PSA results reviewed with the patient today; as noted above. Continue finasteride 5 mg daily as discussed and prescribed. We discussed repeat prostate biopsy. Patient currently denies any bothersome urinary issues. He reports ot be happy with current voiding parameters. All questions were answered. Will obtian PSA in 4 months Follow up in 4 months with PSA to be completed prior; or sooner with any issues, concerns, or questions. Orders: Orders PSA,Total (Free>4and<10) 07/29/24 R97.20 - Elevated prostate specific antigen [PSA] PSA,Total (Free>4and<10) 4 Months R97.20 - Elevated prostate specific antigen [PSA] AMB Urinalysis Automated 08/08/24 Z13.9 - Encounter for screening, unspecified Patient Instructions: The patient had an opportunity to ask questions regarding the treatment plan. All questions were answered. Physical exam, labs, and imaging were discussed and reviewed in detail. As well as risks, benefits, and discussion of treatment choices. No major barriers to understanding were identified. The patient expressed understanding and agreement with the above treatment plan. The patient was made aware they should contact our office by phone for worsening of their current condition, the appearance of new symptoms, or with any questions or concerns. Compliance is encouraged with any medications and follow up testing that is ordered. It is a privilege to be allowed the opportunity to participate in? your urological care.? Again, if you have any questions or concerns If you have any questions or concerns please do not hesitate to contact me. The office is [phone]. This note is constructed using voice recognition software. While every effort has been made to ensure accuracy senior front end engineer errors may have been included. Yours sincerely, BALTA Jaramillo Coding Level of Care Code Est Pt Level 3 (51357) Complex EM visit Add On G2211 Diagnoses Elevated PSA R97.20 Bladder trabeculation N32.89 Renal cyst N28.1
--- OUTSIDE RECORDS SUMMARY | 2024-08-08 12:11 | XMS_ITS | Clinical Summary ---
Author Organization [facility] lin Address [address] [place] [address] Care Team Providers Care Smoke Room Operator Name Role Phone No, Pcp REGULATORY AFFAIRS PORTFOLIO LEADER Primary Care Provider Unavailabl e Social History Tobacco Use Types Packs/Day Years Used Date Smoking Tobacco: Never Assessed Sex and Gender Information Value Date Recorded Sex Assigned at Not on file Legal Sex Male 10:40 AM EST Gender Identity Not on file Sexual Orientation Not on file Plan of Treatment Health Maintenance Due Date Last Done Comments Colorectal Cancer: COLONOSCO PY Screening every 10 yrs (or Modifier) 1960 Depression: Screening Annual ly using PHQ-2/9 in Adults 18 yrs or above (or HM Modifier)([facility]) 1978 Hepatitis C Virus Infection in Adolescents and Adults: Screening (or Modifier) ([facility]) 1978 SDWA Screening Reminder: Aixa nolen for all adults ([facility]) 1978 Tobacco Smoking Cessation: i n Adults excluding Women: Behavioral and Pharmacotherapy Interventions ([facility]) 1978 DTaP/Tdap/Td Vaccines ([facility]) (1 - Tdap) 1979 Lipid Screening: Every 5 yrs for Men aged 35+ (or HM Modifier) ([facility]) 1996 Colorectal Cancer Screening 45 -75 Yrs (or HM Modifier) 2005 Colorectal Cancer: FLEXIBLE SIGMOIDOSCOPY Screening every 5 yrs 2005 Colorectal Cancer: Fecal Immunochemical Test (FIT) Annually [facility] 2005 Colorectal Cancer: High-sens itivity gFOBT Screening Annually [facility] 2005 Colorectal Cancer: Stool Col oguard Screening every 3 yrs 2005 Colorectal Cancer:CT Colonog johanna Screening every 5 yrs 2005 Zoster/Shingles Vaccine Seri es Screening: Adults aged 18+ yrs (or HM Modifiers)([facility]) (1 of 2) 2010 Flu Vaccination: Yearly for ages 18mos through 64 years (or Modifier)([facility]) 01/04/2024 COVID-19 Vaccine Screening: Initial Series and Booster Status ([facility]) ( - 2023-25 season) 2024 RSV Vaccines (1 - 1-dose 75+ series) 2035 Pneumococcal Vaccination Scr eening: Pts 0-19 & 19-64 yrs of age ([facility]) Aged Out No longer eligible based on patient's age to complete this topic Medical Devices Not on file Insurance Care Teams Smoke Room Operator Relationship Specialty Start Date End Date No, Pcp, REGULATORY AFFAIRS PORTFOLIO LEADER N/A Do not use PCP - General Family Medicine 06/06/20
--- OUTSIDE RECORDS SUMMARY | 2024-08-08 12:11 | XMS_ITS | Clinical Summary ---
Author Organization 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[employer] >1MO PO; COMMENT: valve replacement patient was not sure which one OTHER SURGICAL HISTORY PROCEDURE: [place] BIOPSY PROSTATE INCISIONAL ANY APPROACH; COMMENT: Benign Medical History Medical History Date Comments Coronary artery disease DX:Coron naomi artery disease Hypertension DX:Hypertension Hyperlipidemia DX:Hyperlipidemi a Family History Medical History Relation Name Comments Other: Other Father Other: Other Mother Relation Name Status Comments Father Mother Social History Tobacco Use Types Packs/Day Years Used Date Smoking Tobacco: Former Smokeless Tobacco: Never Alcohol Use Standard Drinks/Week Comments No 0 (1 standard drink = 0.6 oz pur e alcohol) Sex and Gender Information Value Date Recorded Sex Assigned at Not on file Legal Sex Male 1:35 AM EST Gender Identity Not on file Sexual Orientation Not on file Obstetrics History Last Filed Vital Signs Vital Sign Reading Time Taken Comments Blood Pressure 132/60 03/04/2024 7:44 AM EDT Sit ting L Arm Pulse 60 03/04/2024 7:44 AM EDT Temperature - - Respiratory Rate - - Oxygen Saturation - - Inhaled Oxygen Concentration - - Weight 109 kg (241 lb) 03/04/2024 7:44 AM EDT Height 185.4 cm (6' 1 ) 03/04/2024 7:44 AM EDT Body Mass Index 31.8 03/04/2024 7:44 AM EDT Plan of Treatment Health Maintenance Due Date Last Done Comments DTaP,Tdap,and Td Vaccines (1 - Tdap) 1979 Pneumococcal Vaccine: 50+ Ye ars (1 of 2 - PCV) 1979 Pneumococcal Vaccine: Pediat rics (0 to 5 Years) and At-Risk Patients (6 to 64 Years) (1 of 2 - PCV) 1979 Zoster Vaccines (1 of 2) 2010 RSV Immunization Patients 60 + Years Old (1 - Risk 60-74 years 1-dose series) 2020 Cholesterol Screening (Lipid Panel) 05/08/2022 Colorectal Cancer Screening: Colonoscopy 05/08/2022 Depression Screening 05/08/2022 HIV Screening 05/08/2022 Hepatitis C Screening 05/08/2022 Social Influencers of Health Screening 05/08/2022 Hypertension/CHF/CAD Annual BMP Blood Test 05/12/2022 COVID-19 Vaccine ( - 2023-2 5 season) 2024 Influenza Vaccine (#1) 2024 HIB Vaccines Aged Out No longer eligi ble based on patient's age to complete this topic HPV Vaccines Aged Out No longer eligi ble based on patient's age to complete this topic Hepatitis A Vaccines Aged Out No long er eligible based on patient's age to complete this topic Hepatitis B Vaccines Aged Out No long er eligible based on patient's age to complete this topic IPV Vaccines Aged Out No longer eligi ble based on patient's age to complete this topic MMR Vaccines Aged Out No longer eligi ble based on patient's age to complete this topic Meningococcal ACWY Vaccine Aged Out N o longer eligible based on patient's age to complete this topic Meningococcal B Vacine Aged Out No lo nger eligible based on patient's age to complete this topic RSV Immunization Patients Un zander 20 months Aged Out No longer eligible b ased on patient's age to complete this topic Varicella Vaccines Aged Out No longer eligible based on patient's age to complete this topic Care Teams Medical Collections Relationship Specialty Start Date End Date Reza Estevez MD PCP - General Internal Medicine 06/05/11
== END 2024-08-08 11:12 | disposition home or self-care (01) ==
PROVIDERS: PCP Internal Medicine; Visit Provider Nurse Practitioner Family
DX: Z13.9 Encounter for screening, unspecified (principal)

== ENCOUNTER → 2024-08-08 10:19 | Outpatient (BNVA) | payer OTHER, SELFPAY | PROVIDERS: PCP Internal Medicine; Visit Provider Nurse Practitioner Family | DX: R97.20 Elevated prostate specific antigen [PSA] (principal); N32.89 Other specified disorders of bladder; N28.1 Cyst of kidney, acquired; Z79.899 Other long term (current) drug therapy | CPT/HCPCS: 81003 ==

== ENCOUNTER 2025-01-29 14:44 | Outpatient (AMB) | payer OTHER, SELFPAY ==
--- NOTE | 2025-01-29 14:48 | MHC.OFFVIS ---
Intake Visit Reasons: follow up/PSA Intake Note: Patient is present for PSA F/U Urology Medication:FINASTERIDE Antibiotic Allergy:NONE Blood Thinner:ASPIRIN Matting Press Tender Required: No Allergies No Known Allergies Allergy (Verified 01/29/25 15:23) Medication List - Last Reconciled 01/29/25 by SHAJI Jaramillo- aspirin 81 mg PO DAILY carvedilol 12.5 mg PO BID finasteride 5 mg PO DAILY 90 days lisinopril 10 mg PO DAILY lisinopril 20 mg PO DAILY rosuvastatin 40 mg PO DAILY HPI Comments Details: Tom is a very pleasant 64-year-old male patient of Dr. Estevez. He has a past medical history of hyperlipidemia, hypertension, and cardiac valve repair. He is being followed up on today via video telehealth for his elevated PSA. In discussion with the patient today he reports noting over the last 2-3 weeks he has been having issues with right-sided testicular swelling. He also reports a few weeks ago/months ago he also had experience issues with irritation to his urethra however believes this was related to wet bathing suit use. He reports most recently he has been having intermittent swelling of his testicle and enquiring further workup. We did discussed obtaining scrotal ultrasound and unable to perform physical assessment as today's appointment is via telehealth. He denies pain, nausea, and or vomiting. He reports only swelling in describes it as intermittent. We did discussed worsening symptoms. He otherwise denies any bothersome urinary issues. He does report compliance with finasteride as prescribed. Recent PSA results reviewed with the patient today. As noted and trended below. Of note, patient underwent prostate biopsy with Dr. Austin 01/26 noting chronic inflammation at which time he was started in Finasteride. Previous workup has included MRI of the prostate 10/26 noting Ill-defined T2 hypointense lesion with obscured margins measuring 1.7 cm in the left posterior lateral mid gland with moderate ADC and visualize signal abnormality (PI-RADS 3). PSAs are as follows: 02/25 6.0, 03/27 3.8 % free 24%, 08/26 5.0 % free 16%, 10/26 5.1 % free 13%, 08/27 5.8 free 20%, 01/27 2.9 Previous work up has also included a retroperitoneal ultrasound 10/23 noting bilateral kidneys with no hydronephrosis and no renal calculi. There is a 1.1 cm lateral cyst with benign features. There is a 0.7 cm medial midpole cyst with benign features. Lateral 1.1 cm exophytic midpole cyst with benign features. There is no indication for follow up imaging. Per radiology report. The bladder is well distended. Diffuse thickening and irregularity with trabeculations. Bilateral ureteral jets are demonstrated. Pre void bladder volume is approximately 400 mL. Postvoid bladder volume is approximately 40 mL. Prostate volume is approximately 60 mL. We did discussed potential causes of scrotal swelling. All questions were answered. He otherwise offers no issues or concerns at this time. Review of Systems Const All systems reviewed & are unremarkable except as noted in HPI and below Reports no additional complaints Eyes Reports no additional complaints ENT Reports no additional complaints Card Reports as per HPI Resp Reports no additional complaints GI Reports no additional complaints Reports as per HPI Musc Reports no additional complaints Neuro Reports no additional complaints Psych Reports no additional complaints Endo Reports no additional complaints Farbicio/Lymph Reports no additional complaints Aller/Immun Reports no additional complaints Physical Exam Const General: cooperative, healthy appearing, comfortable, no acute distress, well developed, alert and awake Orientation/consciousness: patient oriented x3 Resp Effort & Inspection: normal respiratory effort and able to speak in complete sentences Neuro General: patient oriented x3 Psych Appearance: grossly normal and well kempt Mental Status: mental status grossly normal Speech and movement: Clear speech present Affect: normal affect Attitude: cooperative Thought content: Normal thought content present Insight: Fair insight present (Psych) Judgement: Fair judgement present (Psych) Telehealth Telehealth Telehealth Platform: [facility] Location of provider rendering services: practice address Location of patient: address on file Patient Identification confirmed using: Name, : Yes Telehealth method: video Patient verbally consented to treatment: Yes Patient verbally consented to billing insurance company: Yes Patient informed of any privacy concerns related to visit: Yes Minutes spent on Phone/Video with Pt.: 25 Assessment & Plan Assessment & Plan (1) Bladder trabeculation: Code(s): N32.89 - Other specified disorders of bladder Category: Medical (2) Elevated PSA: Code(s): R97.20 - Elevated prostate specific antigen [PSA] Category: Medical (3) Testicular swelling, right: Code(s): N50.89 - Other specified disorders of the male genital organs Category: Medical (4) Nocturia: Code(s): R35.1 - Nocturia Category: Medical (5) Renal cyst: Code(s): N28.1 - Cyst of kidney, acquired Category: Medical Plan Recent PSA results with the patient today; as noted above. Continue finasteride as discussed and prescribed. Will obtain scrotal ultrasound for further assessment evaluation. We did discussed potential causes of intermittent scrotal swelling patient is experiencing. We did discussed attempting to wear more supportive underwear. We discussed worsening symptoms. He denies any bothersome urinary issues. He reports be happy with current voiding parameters. Follow-up in 4-6 weeks with imaging to be completed prior; or sooner with any issues, concerns, and or questions. Orders: Orders US scrotum Today N50.89 - Other specified disorders of the male genital organs Medications: Refilled finasteride 5 mg PO DAILY 90 tabs 3RF 90 days N40.1 - Benign prostatic hyperplasia with lower urinary tract symptoms, R33.9 - Retention of urine, unspecified finasteride 5 mg PO DAILY 90 days 90 tabs 1RF N40.1 - Benign prostatic hyperplasia with lower urinary tract symptoms, R33.9 - Retention of urine, unspecified Patient Instructions: The patient had an opportunity to ask questions regarding the treatment plan. All questions were answered. Physical exam, labs, and imaging were discussed and reviewed in detail. As well as risks, benefits, and discussion of treatment choices. No major barriers to understanding were identified. The patient expressed understanding and agreement with the above treatment plan. The patient was made aware they should contact our office by phone for worsening of their current condition, the appearance of new symptoms, or with any questions or concerns. Compliance is encouraged with any medications and follow up testing that is ordered. It is a privilege to be allowed the opportunity to participate in? your urological care.? Again, if you have any questions or concerns If you have any questions or concerns please do not hesitate to contact me. The office is [phone]. This note is constructed using voice recognition software. While every effort has been made to ensure accuracy pipefitter helper errors may have been included. Yours sincerely, BALTA Jaramillo Coding Level of Care Code Tele Est Pt Level 4 (91011) Diagnoses Bladder trabeculation N32.89 Elevated PSA R97.20 Testicular swelling, right N50.89 Nocturia R35.1 Renal cyst N28.1
--- OUTSIDE RECORDS SUMMARY | 2025-01-29 16:05 | XMS_ITS | Clinical Summary ---
Author Organization [facility] [employer] [facility] lin Address [address] [place] [address] Care Team Providers Care Tsa Screener Name Role Phone No, Pcp APPLIED RESEARCH DIRECTOR Primary Care Provider Unavailabl e Social History [...] Adults 18 yrs or above (or HM Modifier)([facility]) 1978 Hepatitis C Virus Infection in Adolescents and Adults: Screening (or Modifier) ([facility]) 1978 SDLA Screening Reminder: Aixa nolen for all adults ([facility]) 1978 Tobacco Smoking Cessation: i n Adults excluding Women: Behavioral and Pharmacotherapy Interventions ([facility]) 1978 DTaP/Tdap/Td Vaccines ([facility]) (1 - Tdap) 1979 Colorectal Cancer Screening 45 -75 Yrs (or HM Modifier ) 2005 Colorectal Cancer: FLEXIBLE SIGMOIDOSCOPY Screening every 5 yrs 2005 Colorectal Cancer: Fecal Imm unochemical Test (FIT) Annually [facility] 2005 Colorectal Cancer: High-sens itivity gFOBT Screening Annually [facility] 2005 Colorectal Cancer: Stool Col oguard Screening every 3 yrs 2005 Colorectal Cancer:CT Colonography Screening every 5 yr s 2005 Pneumococcal Vaccination Scr eening: Patients 50+ yrs of age ([facility]) (1 of 1 - PCV) 2010 Zoster/Shingles Vaccine Seri es Screening: Adults aged 18+ yrs (or HM Modifiers)([facility]) (1 of 2) 2010 COVID-19 Vaccine Screening: Initial Series and Booster Status ([facility]) (2023- season) 2024 Flu Vaccination: Yearly for ages 18mos through 64 years (or Modifier)([facility]) 01/03/2025 RSV Vaccines (1 - 1-dose 75+ series) 2035 Medical Devices Not on file Care Teams Tsa Screener Relationship Specialty Start Date End Date No, Pcp, APPLIED RESEARCH DIRECTOR N/A Do not use PCP - General Family Medicine 06/06/20
--- OUTSIDE RECORDS SUMMARY | 2025-01-29 16:05 | XMS_ITS | Clinical Summary ---
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 Name Role Phone Reza Estevez MD Primary Care Provider [phone] Surgical History Surgery Date Site/Laterality Comments OTHER SURGICAL HISTORY PROCEDURE: [place] ANES HRT PERICRD SAC&GRT VSLS W/INSPECTOR PRECISION ASSEMBLY OXTJ >1MO PO; COMMENT: valve replacement patient was not sure which one OTHER SURGICAL HISTORY PROCEDURE: [place] BIOPSY PROSTATE INCISIONAL ANY APPROACH; COMMENT: Benign [...] Information Value Date Recorded Sex Assigned at Male 09/26/2024 10:35 AM EDT Legal Sex Male 1:35 AM EST Gender Identity Male 09/26/2024 10:35 AM EDT Sexual Orientation Straight 09/26/2024 10 :35 AM EDT Obstetrics History Last Filed Vital Signs Vital [...] (1 - Tdap) 1979 Pneumococcal Vaccine: 50+ Years (2 of 2 - PCV) 08/18/2013 08/18/2012 Cholesterol Screening (Lipid Panel) 05/08/2022 Colorectal Cancer Screening: Colonoscopy 05/08/2022 HIV Screening 05/08/2022 Hepatitis C Screening 05/08/2022 Social Influencers of Health Screening 05/08/2022 Hypertension/CHF/CAD Annual BMP Blood Test 05/12/2022 Depression Screening 06/05/2024 Influenza Vaccine (#1) 2025 , 03/23/2023, 04/24/2021, Additional history exists RSV Immunization Adult Patients (1 - 1-dose 75+ series) 2035 Zoster Vaccines Completed 03/28/2018, 12/22/2017 COVID-19 Vaccine Completed 02/23/2024, 12/2022, 07/08/2022, Additional history exists HIB Vaccines Aged Out No longer eligi [...] age to complete this topic Meningococcal B Vaccine Aged Out No l onger eligible based on patient's age to complete this topic RSV Immunization Patients Under 20 months Aged Out No longer eligible based on patient's age to complete this topic Varicella Vaccines Aged Out No longer eligible based on patient's age to complete this topic Insurance [facility] Care Teams Industrial Boilermaker Relationship Specialty Start Date End Date Reza Estevez MD [address] [place] [address] PCP - General Internal Medicine 10/01/24
== END 2025-01-29 16:38 | disposition home or self-care (01) ==
LOC: HO.HUSH 14:44
PROVIDERS: PCP Internal Medicine; Visit Provider Nurse Practitioner Family
DX: N32.89 Other specified disorders of bladder (principal); R97.20 Elevated prostate specific antigen [PSA]; N50.89 Other specified disorders of the male genital organs; R35.1 Nocturia; N28.1 Cyst of kidney, acquired
CPT/HCPCS: 99214

== ENCOUNTER 2025-03-13 09:36 | Outpatient (AMB) | payer OTHER, SELFPAY ==
--- NOTE | 2025-03-13 09:41 | MHC.OFFVIS ---
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 Estevez. He has a past medical history of hyperlipidemia, hypertension, and cardiac valve repair. He presents to the office today for follow-up of his scrotal swelling and elevated PSA. Of note, patient was seen approximately 6 weeks ago via telehealth at which time he had been reporting intermittent scrotal discomfort and swelling at which time recommendations were made for office appointment for further assessment evaluation. In assessment of the patient today the penis is circumcised small bilateral hydroceles are noted however right inguinal hernia is present otherwise no masses or open areas noted. He reports noting swelling is significantly decreased upon a wakening however feels as the day progresses is when he experiences increased swelling that is also associated with discomfort. He otherwise denies any bothersome urinary issues. He reports compliance with finasteride as prescribed. He does have an upcoming scrotal ultrasound within the next 1-2 weeks. Of note, patient underwent prostate biopsy with Dr. Autsin 01-26 noting chronic inflammation at which time he was started on finasteride. Previous workup has included an MRI of the prostate 10-26 noting ill-defined T2 hypointense lesion with obscured margins measuring 1.7 cm in the left posterolateral mid gland with moderate ADC and visualized signal abnormality (PI-RADS 3). PSAs are as follows: 02/25 6.0, 03/27 3.8 % free 24%, 08/26 5.0 % free 16%, 10/26 5.1 % free 13%, 08/27 5.8 free 20%, 01/27 2.9 Previous work up has also included a retroperitoneal ultrasound 03/27 noting bilateral kidneys with no hydronephrosis and no renal calculi. There is a 1.1 cm lateral cyst with benign features. There is a 0.7 cm medial midpole cyst with benign features. Lateral 1.1 cm exophytic midpole cyst with benign features. There is no indication for follow up imaging. Per radiology report. The bladder is well distended. Diffuse thickening and irregularity with trabeculations. Bilateral ureteral jets are demonstrated. Pre void bladder volume is approximately 400 mL. Postvoid bladder volume is approximately 40 mL. Prostate volume is approximately 60 mL. We discussed referral to general surgery for further assessment evaluation of right inguinal hernia. We also discussed hydroceles. We discussed further interventions and risks and benefits of these interventions. In office urinalysis results reviewed with the patient today. He discusses the recent of his first grandson Niraj. All questions were answered. He otherwise offers no issues or concerns at this time. Review of Systems Const All systems reviewed & are unremarkable except as noted in HPI and below Reports no additional complaints Eyes Reports no additional complaints ENT Reports no additional complaints Card Reports as per HPI Resp Reports no additional complaints GI Reports no additional complaints Reports as per HPI Musc Reports no additional complaints Neuro Reports no additional complaints Psych Reports no additional complaints Endo Reports no additional complaints Fabricio/Lymph Reports no additional complaints Aller/Immun Reports no additional complaints Physical Exam Const General: cooperative, healthy appearing, comfortable, no acute distress, well developed, alert and awake Nutritional Appearance: average body habitus Orientation/consciousness: patient oriented x3 Limitations: no limitations HEENT Head: Yes normal to inspection, Yes normocephalic and Yes atraumatic Ears: hearing grossly normal bilaterally Eyes General: appearance normal, both eyes and all related structures Neck Neck: Yes normal visual inspection and Yes trachea midline Chest Chest palpation & inspection: normal inspection of the chest Resp Effort & Inspection: normal respiratory effort and able to speak in complete sentences Cardio Rate: regular rate GI Inspection: Yes normal to inspection General: Yes no CVA tenderness Penis: normal penis and circumcised Meatus: meatus normal Scrotum: Hydrocele present Testes: Testes normal Back/Spine/Pelvis Back: no CVA tenderness Skin General skin exam: no rashes or lesions noted Neuro General: patient oriented x3 Extrem General: Yes normal to inspection Psych Appearance: grossly normal and well kempt Mental Status: mental status grossly normal Speech and movement: Clear speech present Affect: normal affect Attitude: cooperative Thought process: Normal thought process present Thought content: Normal thought content present Insight: Fair insight present (Psych) Judgement: Fair judgement present (Psych) Office Procedures Post Void Residual Post Residual Void Post Void Residual (PVR): 0 [id number] Void Residual by ultrasound Results AMB Urinalysis, Automated UA Leukoctes 0 Britta/uL Last Edit by RADHA Mcguire on 03/13/25 09:59 UA Nitrite Last Edit by RADHA Mcguire on 03/13/25 09:59 UA Urobilinogen 0.2 mg/dL Last Edit by RADHA Mcguire on 03/13/25 09:59 UA Protein 15 mg/dL Last Edit by Berkley Moss [facility] on 03/13/25 09:59 UA pH 6.0 Last Edit by [facility]kley [facility] on 03/13/25 09:59 UA Blood 0 Robinson/uL Last Edit by RADHA Mcguire on 03/13/25 09:59 UA Specific [place] 1.020 Last Edit by RADHA Mcguire on 03/13/25 09:59 UA Ketone Last Edit by Berkley Moss [facility] on 03/13/25 09:59 UA Bilirubin 0 mg/dL Last Edit by Berkley Moss [facility] on 03/13/25 09:59 UA Glucose 0 mg/dL Last Edit by Berkley Moss [facility] on 03/13/25 09:59 Results Reviewed Results Reviewed: Laboratory Last Values Urine pH (Auto) 6.0 03/13/25 09:58 Specific [place] (Auto) 1.020 03/13/25 09:58 Urine Protein (Auto) 15 mg/dL 03/13/25 09:58 Glucose (UA)(Auto) 0 mg/dL 03/13/25 09:58 Urine Blood (Auto) 0 Robinson/uL 03/13/25 09:58 Urine Bilirubin (Auto) 0 mg/dL 03/13/25 09:58 Urine Urobilinogen (Auto) 0.2 mg/dL 03/13/25 09:58 Leukocyte Esterase (Auto) 0 Britta/uL 03/13/25 09:58 Assessment & Plan Assessment & Plan (1) Elevated PSA: Code(s): R97.20 - Elevated prostate specific antigen [PSA] Category: Medical (2) Hydrocele: Code(s): N43.3 - Hydrocele, unspecified Category: Medical (3) Inguinal hernia: Code(s): K40.90 - Unilateral inguinal hernia, without obstruction or gangrene, not specified as recurrent Category: Medical (4) Scrotum swelling: Code(s): N50.89 - Other specified disorders of the male genital organs Category: Medical Plan In office urinalysis results reviewed with the patient today; as noted above. PVR 0 mL We discussed hydroceles; we discussed further interventions and risks and benefits of these interventions; we discussed surveillance monitoring verses aspiration versus surgical intervention. Will refer to general surgery for further assessment evaluation of right inguinal hernia. He currently denies any bothersome urinary issues. He reports be happy with current voiding parameters. We discussed obtaining PSA for surveillance monitoring Patient with upcoming scrotal ultrasound appointment. We did discussed worsening symptoms. We also discussed lifestyle modifications to assist with hydroceles. All questions were answered. Follow-up in 2 months with imaging and lab to be completed prior; or sooner with any issues, concerns, and or questions. Orders: Orders AMB Post Void Residual by ultrasound Today R35.1 - Nocturia AMB Urinalysis Automated Today Z13.9 - Encounter for screening, unspecified PSA,Total (Free>4and<10) 2 Months R97.20 - Elevated prostate specific antigen [PSA] Referrals General Surgery Referral K40.90 - Unilateral inguinal hernia, without obstruction or gangrene, not specified as recurrent Patient Instructions: The patient had an opportunity to ask questions regarding the treatment plan. All questions were answered. Physical exam, labs, and imaging were discussed and reviewed in detail. As well as risks, benefits, and discussion of treatment choices. No major barriers to understanding were identified. The patient expressed understanding and agreement with the above treatment plan. The patient was made aware they should contact our office by phone for worsening of their current condition, the appearance of new symptoms, or with any questions or concerns. Compliance is encouraged with any medications and follow up testing that is ordered. It is a privilege to be allowed the opportunity to participate in? your urological care.? Again, if you have any questions or concerns If you have any questions or concerns please do not hesitate to contact me. The office is [phone]. This note is constructed using voice recognition software. While every effort has been made to ensure accuracy psychologist social errors may have been included. Yours sincerely, SHAJI Jaramillo-BC Coding Level of Care Code Est Pt Level 3 (77725) Complex EM visit Add On G2211 Diagnoses Elevated PSA R97.20 Hydrocele N43.3 Inguinal hernia K40.90 Scrotum swelling N50.89 CPT Codes Post Residual Void - PVR CPT Code: 21254-[id number] Void Residual by ultrasound ([id number])
== END 2025-03-13 10:33 | disposition home or self-care (01) ==
LOC: HO.HUSH 09:36
PROVIDERS: PCP Internal Medicine; Visit Provider Nurse Practitioner Family
DX: R97.20 Elevated prostate specific antigen [PSA] (principal); N43.3 Hydrocele, unspecified; K40.90 Unilateral inguinal hernia, without obstruction or gangrene, not specified as recurrent; N50.89 Other specified disorders of the male genital organs; Z13.9 Encounter for screening, unspecified
CPT/HCPCS: 99213

== ENCOUNTER → 2025-03-13 09:36 | Outpatient (BNVA) | payer OTHER, SELFPAY | PROVIDERS: PCP Internal Medicine; Visit Provider Nurse Practitioner Family | DX: R97.20 Elevated prostate specific antigen [PSA] (principal); N43.3 Hydrocele, unspecified; N50.89 Other specified disorders of the male genital organs; K40.90 Unilateral inguinal hernia, without obstruction or gangrene, not specified as recurrent | CPT/HCPCS: 51798; 81003 ==

== ENCOUNTER 2025-03-19 10:23 | Outpatient (REF) | payer OTHER, SELFPAY ==
--- OUTSIDE RECORDS SUMMARY | 2024-09-25 04:30 | XMS_ITS ---
Author Organization [facility] Address [address], [place] [id number] Care Team Providers Care Associate Director Financial Aid Name Role Phone ELIS KENT Primary Care Provider REASON FOR VISIT 42 6mo F/U MEDICATIONS Medication SIG (Take, Route, Frequency, Duration) Notes Start Date End Date Status Carvedilol 12.5 MG TAKE 1 TABLET BY CASSIUS TH TWICE DAILY for 90 Active Lisinopril 20 MG TAKE 1 TABLET BY CASSIUS TH EVERY DAY for 90 Active Rosuvastatin Calcium 40 MG TAKE 1 TABLET BY MOUTH DAILY for 90 Active Vitamin D3 25 MCG (1000 UT) 1 orally once a day Active Aspirin 81 81 MG 1 tablet Orally Once a day for 30 day(s) Active Finasteride 5 MG 1 tablet Orally Once a day for 30 day(s) Active SOCIAL HISTORY Tobacco Use: Social History Observation Description Date Details (start date - stop date) Former Smoker NA - NA Sex Assigned At : Social History Observation Description Sex Assigned At Unknown Smoking Question Answer Notes Are you a: former smoker How long has it been since you last smoked? > 10 years Section Notes: pt never smoke PROBLEMS Problem Type ICD Code Onset Dates Problem Status W/U Status Risk SNOMED Code Notes Problem Other sleep disorders (G47.8) Active confirmed Sleep diso rder (13842618) Problem Heart failure with mildly reduced ejection fraction (I50.22) Active confirmed 718630018 Problem Carotid artery disease, unspecified laterality, unspecified type (I77.9) Active confirmed 881764618 Problem Fatty liver disease, nonalcoholic (K76.0) Active confirmed 6532411146 VITAL SIGNS Height 72.75 in 09/25/2024 Weight 234 lbs 09/25/2024 Blood pressure systolic 126 mm Hg 09/26/19 25 Blood pressure diastolic 68 mm Hg 025 BMI 31.08 kg/m2 09/25/2024 Encounters Encounter Location Date Provider Diagnosis [facility] [address] [place] [address] 09/25/2024 ELIS KENT Disorder of lipoprotein metabolism, unspecified E78.9 ; Essential (primary) hypertension I10 ; Cardiac murmur, unspecified R01.1 ; Elevated PSA R97.20 ; Other sleep disorders G47.8 ; Heart failure with mildly reduced ejection fraction I50.22 ; Carotid artery disease, unspecified laterality, unspecified type I77.9 and Fatty liver disease, nonalcoholic K76.0 ASSESSMENTS Encounter Date Diagnosis Assessment Notes Treatment Notes Treatment Clinical Notes Section Notes 09/25/2024 Disorder of lipoprotein metabolism, unspecified (ICD-10 - E78.9) Continue statin therapy if systems negative for side effects check lipid profile and LFTs LDL goal less than 70 09/25/2024 Essential (primary) hypertension (ICD-10 - I10) Blood pressure stable well-controlled no change in therapy no added salt diet check labs recheck blood pressure within normal limits no added salt diet recommended walk 30 minutes a day. Weight loss recommended liberalize potassium in the diet 09/25/2024 Cardiac murmur, unspecified (ICD-10 - R01.1) Echo up-to-date. No symptoms. Patient has had a history of mitral valve repair he also has moderate aortic insufficiency. Follow-up echo in 6 months 09/25/2024 Elevated PSA (ICD-10 - R97.20) Stable BPH recheck PSA 09/25/2024 Other sleep disorders (ICD-10 - G47.8) 09/25/2024 Heart failure with mildly reduced ejection fraction (ICD-10 - I50.22) No overt CHF physical exam stable check BMP 09/25/2024 Carotid artery disease, unspecified laterality, unspecified type (ICD-10 - I77.9) Baby aspirin set up carotid ultrasound LDL goal less than 70 09/25/2024 Fatty liver disease, nonalcoholic (ICD-10 - K76.0) Set up liver ultrasound follow-up check LFTs weight loss diet and exercise 09/25/2024 Other Stable check LFTs diet exercise weight management alcohol moderation PLAN OF TREATMENT Treatment Notes Assessment Notes Disorder of lipoprotein meta bolism, unspecified Continue statin therapy if systems negative for side effects check lipid profile and LFTs LDL goal less than 70 Essential (primary) hypertension Blood p ressure stable well-controlled no change in therapy no added salt diet check labs recheck blood pressure within normal limits no added salt diet recommended walk 30 minutes a day. Weight loss recommended liberalize potassium in the diet Cardiac murmur, unspecified Echo up-to-d ate. No symptoms. Patient has had a history of mitral valve repair he also has moderate aortic insufficiency. Follow-up echo in 6 months Elevated PSA Stable BPH recheck P SA Heart failure with mildly re duced ejection fraction No overt CHF physical exam stable check BMP Carotid artery disease, unsp ecified laterality, unspecified type Baby aspirin set up carotid ultrasound L DL goal less than 70 Fatty liver disease, nonalcoholic Set up liver ultrasound follow-up check LFTs weight loss diet and exercise Other Stable check LFTs di et exercise weight management alcohol moderation Next Appt Details Follow Up: OV 6 months labs pending, Reason: Provider Name:ELIS RODRIGUEZ, 04/02/2025 09:00:00 AM, [address] [place] [address], [phone], Progress Notes * Examination Category Sub-Category Detail Notes Category Not es General Examination HEENT: Conjunctiva pink anicteric mucous membranes moist oropharynx clear TMs clear sinus clear EACs clear Neck: Supple carotids 2+ n o bruits no lymphadenopathy no thyromegaly Heart: Regular rate and rhy thm 2/6 diastolic murmur left and right upper sternal border Lungs: clear to auscultatio n Abdomen: soft, non tender/non distended, no rebound tenderness, no guarding or rigidity, no masses palpated, no hepatosplenomegaly, normal active bowel sounds Extremities: no clubbing , cyanos is, or edema, pulses 2 plus bilaterally General Appearance Pleasant well-develo ped well-nourished white male appearing stated age no apparent distress Skin: normal, no rash, nimo ign appearing moles Neuro alert and oriented x 3, CN 2-12 intact, motor 5/5 bilaterally proximally and distally in all 4 extremities, no focal abnormality Musculoskeletal Normal rheumatologic exam History and Physical Notes * HPI (History of Present Illness) Category Sub-Category Detail Notes Category Not es General Hypertension fo llow-up. See review of systems below
--- OUTSIDE RECORDS SUMMARY | 2024-09-26 02:22 | XMS_ITS ---
Author Organization [facility] Address [address] [place], [place] [id number] Care Team Providers Care Soccer Coach Name Role Phone ELIS KENT Primary Care Provider Encounters Encounter Location Date Provider Diagnosis [address] [address] 09/26/2024 ELIS KENT PLAN OF TREATMENT Next Appt Details Provider Name:ELIS RODRIGUEZ, 04/02/2025 09:00:00 AM, [address] [place], [address],
--- OUTSIDE RECORDS SUMMARY | 2024-10-01 11:33 | XMS_ITS ---
Author Organization [facility] Address [address] [place], [place] [id number] Care Team Providers Care Donation Worker Name Role Phone ELIS KENT Primary Care Provider Encounters Encounter Location Date Provider Diagnosis [address] [address] 10/01/2024 ELIS KENT PLAN OF TREATMENT Next Appt Details Provider Name:ELIS RODRIGUEZ, 04/02/2025 09:00:00 AM, [address] [place], [phone],
--- OUTSIDE RECORDS SUMMARY | 2024-11-26 10:05 | XMS_ITS ---
Author Organization [facility] Address [address] [place], [place] [id number] Care Team Providers Care Obstetrician/Gynecologist Name Role Phone ELIS KENT Primary Care Provider [phone] REASON FOR VISIT refill MEDICATIONS Medication SIG (Take, Route, Frequency, Duration) Notes Start Date End Date Status Rosuvastatin Calcium 40 MG TAKE 1 TABLET BY MOUTH DAILY orally once a day for 90 days Active Carvedilol 12.5 MG TAKE 1 TABLET BY CASSIUS TH TWICE DAILY Orally Twice a day for 90 days Active Lisinopril 20 MG TAKE 1 TABLET BY CASSIUS TH EVERY DAY Orally once a day for 90 days Active Encounters Encounter Location Date Provider Diagnosis [address] [address] 11/26/2024 ELIS KENT PLAN OF TREATMENT Medication Medication Name Sig Start Date Stop Date Notes Rosuvastatin Calcium 40 MG TAKE 1 TABLET BY MOUTH DAILY orally once a day for 90 days Carvedilol 12.5 MG TAKE 1 TABLET BY CASSIUS TH TWICE DAILY Orally Twice a day for 90 days Lisinopril 20 MG TAKE 1 TABLET BY CASSIUS TH EVERY DAY Orally once a day for 90 days Next Appt Details Provider Name:ELIS RODRIGUEZ, 04/02/2025 09:00:00 AM, [address] [place] [address], [phone],
--- OUTSIDE RECORDS SUMMARY | 2025-02-07 05:47 | XMS_ITS ---
Author Organization [facility] Address [address] [place], [place] [id number] Care Team Providers Care Chlorine Cells Operator Name Role Phone ELIS KENT Primary Care Provider REASON FOR VISIT T-Daqp? Encounters Encounter Location Date Provider Diagnosis [address] [address] 02/07/2025 ELIS KENT PLAN OF TREATMENT Next Appt Details Provider Name:ELIS RODRIGUEZ, 04/02/2025 09:00:00 AM, [address] [place], [address],
--- NOTE | ~2025-03-19 | US_ITS ---
CLINICAL HISTORY: N50.89 - Other specified disorders of the male genital organs Scrotal ultrasound with vascular interrogation Comparison: None available Findings: The testes are normal in echotexture without lesions. Right testicular appendage. Normal arterial/venous color Doppler and arterial flow pattern. Right testis size, mildly enlarged: 4.6 x 3.1 x 3.2 cm, volume of 23.7mL. Left testis size, normal: 3.8 x 2.2 x 2.8 cm, volume of 12.4mL. The epididymides are normal in size and echotexture. Normal color Doppler. Moderate-sized right and small left scrotal fluid with internal septations. Bilateral varicocele. Right inguinal hernia. Impression: Moderate-sized right and small left scrotal fluid with internal septations may indicate pyoceles. Correlate clinically for signs/symptoms of infection. If there is a history of trauma resolving hematoceles could be considered. Mildly enlarged right testis. No evidence of epididymitis. Isolated orchitis is uncommon. Correlate clinically for signs/symptoms of infection. This document has been electronically signed by: Lucretia Sarah MD on 03/20/2025 15:07:25
--- OUTSIDE RECORDS SUMMARY | 2025-03-19 12:17 | XMS_ITS | Patient Health Record ---
Author Organization [facility] Address [address] [place], [place] [id number] Care Team Providers Care Broadloom Weaver Name Role Phone ELIS KENT Primary Care Provider ALLERGIES No Known Allergies REASON FOR REFERRAL Reason elevated psa Diagnosis 1 Elevated prostate sp ecific antigen [PSA] (R97.20) Referral Organization [facility] Referring Provider First Name ELIS Referring Provider Last Name DONTE Referring Provider Speciality Internal M edicine Referred Provider Specialty Urology General Notes Yessy HEMPHILL Admin 03:42:14 PM > per incoming document from [facility] Urology pt has appt on 01/29/25>r97.20 Referral Priority Routine Referral Appointment Date 01/29/2025 MEDICATIONS Medication SIG (Take, Route, Frequency, Duration) [...] once a day for 90 days Active Finasteride 5 MG 1 tablet Orally Once a day for 30 day(s) Active Vitamin D3 25 MCG (1000 UT) 1 orally once a day Active Aspirin 81 81 MG 1 tablet Orally Once a day for 30 day(s) Active IMMUNIZATIONS Vaccine Route Administration Date Status Comme nts Influenza, Fluzone Quad IM Intramuscular 03/23/2023 Admini stered SOCIAL HISTORY Tobacco Use: Social History Observation Description Date Details (start date - stop date) Former Smoker NA - NA Sex Assigned At : Social History Observation Description Sex Assigned At Unknown Smoking Question Answer Notes Are you a: former smoker How long has it been since you last smoked? > 10 years Section Notes: pt never smoke pt never smoke pt never smoke pt never smoke pt never smoke PROBLEMS Problem Type ICD Code Onset Dates Problem Status W/U Status Risk SNOMED Code Notes Problem Myalgia (729.1) Active confirmed Myalgi a (83693009) Problem Essential (primary) hypertension (I10) Active confirmed Essential hypertension (91689795) Problem Fatty liver disease, nonalcoholic (K76.0) Active confirmed 1621931375 Problem Unspecified osteoarthritis, unspecified site (M19.90) Active confirmed Osteoarthritis (215365322) Problem Disorder of lipoprotein metabolism, unspecified (E78.9) Active confirmed Disorder of lipoprotein storage and metabolism (disorder) (788910136) Problem Other sleep disorders (G47.8) Active confirmed Sleep disorder (38539098) Problem Alcoholic fatty liver (K70.0) Active confirmed Alcoholic fatt y liver (37680211) Problem Enlarged prostate without lower urinary tract symptoms (N40.0) Active confirmed Enlarged prosta te (013455048) Problem Tinnitus, unspecified laterality (H93.19) Active confirmed 65855926 Problem Elevated prostate specific antigen [PSA] (R97.20) Active confirmed 593159967 Problem Hearing loss, unspecified hearing loss type, unspecified laterality (H91.90) Active confirmed 49995952 Problem Carotid artery disease, unspecified laterality, unspecified type (I77.9) Active confirmed 252747262 Problem Heart failure with mildly reduced ejection fraction (I50.22) Active confirmed 923533530 VITAL SIGNS Blood pressure diastolic 68 mm Hg 09/25/2024 Height 72.75 in 09/25/2024 Blood pressure systolic 126 mm Hg 09/25/2024 Weight 234 lbs 09/25/2024 BMI 31.08 kg/m2 09/25/2024 Encounters Encounter Location Date Provider Diagnosis [facility] [address] [place] [address] 09/18/2024 ELIS KENT [facility] [address] [place] [address] 09/25/2024 ELIS KENT Disorder of lipoprotein metabolism, unspecified E78.9 ; Essential (primary) hypertension I10 ; Cardiac murmur, unspecified R01.1 ; Elevated PSA R97.20 ; Other sleep disorders G47.8 ; Heart failure with mildly reduced ejection fraction I50.22 ; Carotid artery disease, unspecified laterality, unspecified type I77.9 and Fatty liver disease, nonalcoholic K76.[address] [address] 09/26/2024 ELIS KENT [address] [address] 10/01/2024 ELIS KENT [address] [address] 11/26/2024 ELIS KENT [address] [address] 02/07/2025 ELIS KENT ASSESSMENTS Encounter Date Diagnosis Assessment Notes Treatment [...] weight management alcohol moderation PLAN OF TREATMENT Next Appt Details Provider Name:ELIS RODRIGUEZ, 04/02/2025 09:00:00 AM, [address] [place], [address], MEDICAL (GENERAL) HISTORY Medical History History ICD Code R hip Arthritis labs 12/26/08 - ast/alt 73/140, ferritin 336 High cholesterol - labs 11/19 - trig 306, ldl 134, ast/alt 63/96, glucose 101 abd u/s 01/02/09 - 1.3 cm cys t in R hepatic lobe, mild hepatomegaly (homogeneous) labs 01/01/09 - Neg. Hep A & B Hypertension COVID x2 Hyperlipidemia Ascending aorta 3.9 cm Cardiac echo June 2022 LVH EF 50 to 5 5% 2+ AI trace MR aorta 3.9 cm History of actinic keratoses and seborrh eic keratoses Dr. Rao dermatology Status post mitral valve repair with donna e procedure August 2012 [address] August [address] Sylvia duncan August 2026 History of gouty arthritis Cholesterol 175 LDL 1 23 May 2022 Elevated PSA to every 2023 [facility] urology Cardiology Dr. Antoine ov august 2023 Echo October 2023 mild hypokines is. EF 50%. Grade 1-2 diastolic dysfunction. Mild to moderate AI. Ascending aorta 3.9 cm Stress echo March 2024 EF 45 to 50% mi ld LVH significant AI Elevated PSA August 2024 follow-up [facility] urology follow-up Surgical History Surgery Date(Month/Year) heart surgery- mitral valve repair with maze procedure Hip replacement 09/2009 foot surgery 1973
--- OUTSIDE RECORDS SUMMARY | 2025-03-19 12:17 | XMS_ITS | Data Portability ---
Author Organization [place] - [facility] Former[facility], Allergy Address [address] [address] Care Team Providers Care Site Leasing Agent Name Role Phone ELIS KENT Primary Care Provider ELIS KENT Referring Provider [phone] Assessment Encounter Date Assessment Date Assessment LastModified by Organization Details LastModified Time 10/10/2024 10/10/2024 Patient's audiogram shows bilateral moderate sensorineural hearing loss with well maintained speech discrimination. We discussed how his hearing loss is likely related to his long history of loud noise exposure. 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 There is enough hearing loss to affect day-to-day hearing performance. Patient currently has [employer] hearing aids which are over 7 years old and not working that well. We discussed in detail the pros and cons of getting new, up-to-date amplification technology (hearing aids). We discussed the connection between untreated hearing loss and increased risk of dementia, falling and accidents. After full discussion, the patient expressed interest in learning more about amplification options. Accordingly we will set them up for a hearing aid evaluation. Patient is medically cleared for amplification bilaterally. [email or web address] Not available 10/10/2024 11:09:29 Plan of Treatment Reminders Order Date Submit Date Provider Last Modified By Organization Details Last Modified Time Details Appointments None record ed. Lab None record ed. Referral None record ed. Procedures None record ed. Surgeries None record ed. Imaging None record ed. Medication Orders None record ed. Patient TargetsNo targets recorded. Patient InstructionsNo instructions recorded. Reason for Referral None Reported. Results Created Date Observation Date Name Description Value Unit Range Abnormal Flag Note LastModifiedBy Organization Detail LastModifiedTime 10/11/19 25 audio gram No observ ation record ed. BARCODE Not Available 2024 14:11:32 Result Notes None recorded. Problems Name Problem SNOMED Code Status Onset Date Resolution Date Notes Provider Name and Address Organization Details Recorded Time Sensorineur al hearing loss of bilateral ears 023820631 Active 2024 PANTERA MYERS 100 [facility] [address] [facility], [place], [address], [place] [facility] [place] 10:48:18 Bilateral tinnitus 4825641904654 Active 2024 BHARGAV KRAMER MD 100 [facility], [address] [facility], [place], [address], [place] - [facility] [place] 10:58:47 Bilateral hearing loss of ears caused by noise 9320663581003 100 Active 2024 BHARGAV KRAMER MD 100 [facility],[place] [address], [place], [address], [place] - [facility] 10:59:04 Problem Notes None recorded. Procedures Surgical History Date Name Laterality Status Provider Name and Address Organization Details Recorded Time 10/11/19 25 Comp Audio with Tymps - 18826 & 57094 completed PANTERA MYERS 100 [facility],[place] [address], [place], [address], [facility] - [facility] [place] 10/10/2024 10:48:12 total replacement of hip completed Simona Vásquez [place] - [facility] [place] 10/10/2024 10:39:00 operation on heart completed Simona Vásquez [place] - [facility] [place] 10/10/2024 10:39:08 Imaging Results None recorded. Procedure Notes None recorded. Medical Equipment None Reported. Allergies No known drug allergies Medications Name Sig Start Date Stop Date Status Note LastModified by Organization Details LastModified Time carvedilol 12.5 mg tablet TAKE 1 TABLET BY MOUTH TWICE DAILY active Not Available Not Available No t Available valacyclovir 1 gram tablet TAKE 2 TABLETS BY MOUTH TWICE DAILY FOR ONE DAY TAKEN 2 HOURS APART active Not Available Not Available No t Available lisinopril 20 mg tablet TAKE 1 TABLET BY MOUTH EVERY DAY active Not Available Not Available No t Available amoxicillin 500 mg tablet TAKE 1 TABLET BY MOUTH THREE TIMES DAILY 10/10 completed Not Available Not Available Not Available finasteride 5 mg tablet TAKE 1 TABLET BY MOUTH DAILY active Not Available Not Available No t Available rosuvastatin 40 mg tablet TAKE 1 TABLET BY MOUTH DAILY active Not Available Not Available No t Available Vitals Date Recorded Body height Body weight Provider Name and Address Organization Details Last Updated DateTime 10/10/2024 185.42 cm 791002.25 g Simona Vásquez [place] [facility] 10/10/2024 10:52:53 Social History None recorded. Functional Status None recorded. Mental Status None recorded. Family History Nothing Reported. Medical History Condition Response Allergies/Hayfever N Heart Problems Y Anxiety N Tonsil Infections N Emphysema N Migraines N Thyroid Problems N Glaucoma N Depression N COPD N Developmental Delay N Nasal or Sinus Problems N Anemia N Immune System Disorder N Anesthesia Complications N Heart Attack ([place]) N Other Skin Condition N Diabetes N Rhinitis N Bleeding Disorder N Food Allergy N Arthritis Y Hearing Loss N Hyperlipidemia N Cancer N Stroke N Dementia N Nasal polyps N Asthma N Sleep Disorder N GERD/Reflux N High Cholesterol Y Liver Disease N Headaches N Fibromyalgia N Hypertension Y Kidney Disease N Past Encounters Encounter ID Performer Location Encounter Start Date Encounter Closed Date Diagnosis/Indication Diagnosis SNOMED-CT Code Diagnosis ICD10 Code Diagnosis IMO Codes Diagnosis Note [id number] BHARGAV KRAMER MD [facility] [address] [address] 10/10/2024 09:57:31 10/10/2024 11:10:19 Sensorineural hearing loss of bilateral ears 533900846 H90.3 [id number] Audiologic al evaluation results: Right ear:Normal sloping to severe sensorineu ral hearing loss with excellent word recognitio n.Left ear:Normal sloping to moderately severe sensorineu ral hearing loss with excellent word recognitio n.Tympanom etry:Right Ear:Type ALeft Ear:Type A Bilateral tinnitus 47006 80437 102 H93.13 [id number] Today we discussed the pathophysi ology of tinnitus and the absence of consistent ly successful pharmacolo gic treatments for tinnitus. We discussed masking strategies to decrease awareness of the tinnitus, including using a white noise machine, music, or television . We discussed how exposure to loud noise can worsen tinnitus so I recommende d hearing protection . We also discussed other ways to potentiall y help reduce awareness of tinnitus including avoidance of caffeine, salty meals and NSAIDs.In light of the underlying sensorineu ral hearing loss, the patient may want to consider amplificat ion. This would not only help with hearing, but can also be instrument al in acting as a masking source to help reduce the awareness of tinnitus. Bilateral hearing loss of ears caused by noise 6637097619 198284 H83.3X3 [id number] MONSTER RAMIREZ, PANTERA GARRISON - [place] [facility] 100 [place] [address] 11/19/2024 09:04:48 11/20/2024 14:00:13 Sensorineural hearing loss of bilateral ears 931301199 H90.3 [id number] Patient came with: self Demos used: Infinio 90 SPhere Patient motivation : He is currently wearing Phonak JES (312) from [employer]. He had them adjusted and feels he is doing okay. He and his go to [facility] for the summer. His insurance is going to change when he goes on Medicare, but he believes his supplement will be [employer]. In my opinion, Dr Kramer over-hyped this appointmen t. But I did explain to him how sterile it is in here vs social settings where he has more difficulty hearing. I also tried to set realistic expectatio ns for the new devices. Purchased? NoGave pricing and info for him to ponder. He knows to reach out if he decides to get new aids here in the Fall. Health Concerns Section Related Observation LastModified by Organization Detai ls LastModified Time None Recorded Concern Status LastModified by Organization Details LastModified Time None Recorded Advance Directives Directive None Recorded Payers Insurance Date Sequence Insurance Name Policy Number Policy Dejesus Covered Member ID Dejesus Member ID Guarantor Name 11/18/2024 1 [facility] Tom Anglin [id number] Tom Anglin Notes Date Note Type Note Provider Name and Address Organization Details Recorded Time 10/10/2024 text/html 64-year-old male referred for evaluation of hearing loss and tinnitus. 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 He has long history of loud noise exposure in the [employer] business. 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 Patient notes low pitched chronic tinnitus. Overall relatively mild. Patient denies any recent problems with dizziness or vertigo. BHARGAV KRAMER MD [address] [place] [address], [phone], [facility] - [facility] 10/10/2024 11:10:10
--- OUTSIDE RECORDS SUMMARY | 2025-03-19 12:17 | XMS_ITS | Clinical Summary ---
Author Organization [facility] [employer] [facility] lin Address [address] [place] [address] Care Team Providers Care Pharmaceutical Sales Representative Name Role Phone No, Pcp ROTARY DUMP OPERATOR Primary Care Provider Unavailabl e Social History [...] (or Modifier) ([facility]) 1978 SDHI Screening Reminder: Aixa nolen for all adults ([facility]) 1978 Tobacco Smoking Cessation: i n Adults excluding Women: Behavioral and Pharmacotherapy Interventions ([facility]) 1978 DTaP/Tdap/Td Vaccines ([facility]) (1 - Tdap) 1979 Colorectal Cancer Screening 45 -75 Yrs (or HM Modifier ) 2005 Colorectal Cancer: FLEXIBLE SIGMOIDOSCOPY Screening every 5 yrs 2005 Colorectal Cancer: Fecal Imm unochemical Test (FIT) Annually [facility] 2005 Colorectal Cancer: High-sens itivity gFOBT Screening [...] [facility]) (1 of 2) 2010 Flu Vaccination: Yearly for ages 18mos through 64 years (or Modifier)([facility]) 01/03/2025 COVID-19 Vaccine Screening: Initial Series and Booster Status ([facility]) (2023- season) 2025 RSV Vaccines (1 - 1-dose 75+ series) 2035 Medical Devices Not on file Care Teams Pharmaceutical Sales Representative Relationship Specialty Start Date End Date No, Pcp, ROTARY DUMP OPERATOR N/A Do not use PCP - General Family Medicine 06/06/20
--- OUTSIDE RECORDS SUMMARY | 2025-03-19 12:17 | XMS_ITS | Clinical Summary ---
Author Organization [facility] Address [address] [place] [address] Phone Care Team Providers Care Gang Plank Workman Name Role Phone Reza Estevez MD Primary Care Provider [phone] Surgical History Surgery Date Site/Laterality Comments OTHER SURGICAL HISTORY PROCEDURE: MD ANES HRT PERICRD SAC&GRT VSLS W/MANAGER OF HOSPITAL OXTJ >1MO PO; COMMENT: valve replacement patient was not sure which one OTHER SURGICAL HISTORY PROCEDURE: MD BIOPSY PROSTATE INCISIONAL ANY APPROACH; COMMENT: Benign [...] Maintenance Due Date Last Done Comments Colorectal Cancer Screening: Colonoscopy 1960 DTaP,Tdap,and Td Vaccines (1 - Tdap) 1979 Pneumococcal Vaccine: 50+ Years (2 of 2 - PCV) 08/18/2013 08/18/2012 Cholesterol Screening (Lipid Panel) 05/08/2022 HIV Screening 05/08/2022 Hepatitis C Screening [...] patient's age to complete this topic Insurance [facility] Care Teams Gang Plank Workman Relationship Specialty Start Date End Date Reza Estevez MD [address] [place] [address] PCP - General Internal Medicine 10/01/24
== END 2025-03-19 10:24 | disposition home or self-care (01) ==
LOC: HO.HMGCX 10:23
PROVIDERS: PCP Internal Medicine; Visit Provider Nurse Practitioner Family
DX: N50.89 Other specified disorders of the male genital organs (principal)
CPT/HCPCS: 76870

== ENCOUNTER → 2025-03-19 10:26 | Outpatient (BNV) | payer OTHER, SELFPAY | PROVIDERS: PCP Internal Medicine; Visit Provider Radiology Diagnostic Radiology | DX: N50.89 Other specified disorders of the male genital organs (principal) | CPT/HCPCS: 76870 ==

== ENCOUNTER 2025-04-28 09:53 | Outpatient (AMB) | payer OTHER, SELFPAY ==
--- OUTSIDE RECORDS SUMMARY | 2025-04-24 15:00 | XMS_ITS | Encounter Summary ---
Author Organization [facility] Address [address] [place] [address] Care Team Providers Care Ton Cylinder Inspector Name Role Phone Reza Estevez MD Primary Care Provider Reason for Visit * Reason Comments Procedure Upper Back Encounter Details Date Type Department Care Team (Latest Contact Info) Description 04/24/2025 3:00 PM EST Procedure visit General Surgery - [address] [place] [address] Raul Lagunas, DO [address] [place] [address] Melanoma in situ of torso excluding breast (CMS/HCC V24, CMS/HCC V28) (Primary Dx) Social History Tobacco Use Types Packs/Day Years [...] Orientation Straight 09/26/2024 10 :35 AM EDT documented as of this encounter Last Filed Vital Signs Vital Sign Reading Time Taken Comments Blood Pressure 134/67 04/24/2025 2:39 PM EST Pulse 60 04/24/2025 2:39 PM EST Temperature - - Respiratory Rate - - Oxygen Saturation - - Inhaled Oxygen Concentration - - Weight 110 kg (243 lb) 04/24/2025 2:39 PM EST Height 188 cm (6' 2 ) 04/24/2025 2:39 PM EST Body Mass Index 31.2 04/24/2025 2:39 PM EST documented in this encounter Progress Notes * Nancy Oconnor MA - 04/24/2025 3:00 PM EST CARING FOR YOUR WOUND AT HOME: A waterproof dressing has been applied over your incision today. Please leave this on for 2 days (you may remove this dressing on Monday). Some oozing of blood may be normal following your procedure and typically represents old surgical blood making its way out through your incision prior to it fully closing. You may change your dressing earlier than 2 days as needed if you note blood soaking through the bandage. You may shower right away following your procedure, however please do not soak in baths, hot tubs, pools, etc. until after being evaluated at your follow up appointment. After removing your dressing, please make sure to keep your incision clean and dry. Gently wash with soap and water and pat dry with a clean towel. It is best to leave this open to the air, however you may and apply a bandaid or gauze dressing as needed for comfort.Please apply a thin layer of antibiotic ointment (bacitracin, neosporin) over the sutures once daily. The area may be sore following the procedure. You may take over the counter pain medications (ex. Tylenol, Ibuprofen) for postoperative discomfort if you have no known contraindications to taking these medications. You may additionally ice the incision site. Carefully watch for signs of potential wound infection such as fevers > 101.4 F, chills, nausea,vomiting, increased pain in the area, surrounding redness, or excessive drainage. Please call the office if any of these symptoms or other concerns arise. The office will call you with pathology results once available.You have external sutures in place that need to be removed, we will plan to follow up in the office 10-14 days later for suture removal. If you have any questions or concerns, please feel free to call the office at [phone]. * Raul Lagunas DO - 04/24/2025 3:00 PM EST REASON FOR VISIT: Melanoma in situ right mid back HPI: This patient was previously evaluated in my office for a skin cancer of the right mid back. Given presence of malignancy, definitive excision was recommended. The risks and benefits of the procedure were discussed in detail with the patient, including the risk for bleeding, infection, scarring, recu rrence, need for additional surgery dependent on final pathology results, and nerve injury. PROCEDURE Pre-Operative Dx: Melanoma in situ of right upper back Post-Operative Dx: Same Procedure: 1. Excision of malignant skin lesion (maximum lesion diameter 3 cm with margins) 2. Layered closure of 4 cm incision Indications: Malignancy Findings: Consistent with prior shave biopsy site. Description of Procedure: The procedure was described in detail with the patient, including any risks and benefits. Questionswere answered and informed consent was obtained. The area was infiltrated with a 50:50 mix of 1% lidocaine with epinephrine:0.25% marcaine buffered with sodium bicarbonate. The patient was appropriately positioned and the area was prepped and draped in the normal sterile fashion. The lesion was marked an appropriately oriented and sized elliptical incision (with 5 mm margin) was created with a #15 blade within a natural skin line. Dissection was taken to the level of the subcutaneous fat in the area of the lesion and tapered toward the poles of the incision. Orienting sutures were placed. Hemostasis was confirmed. Interrupted deep dermal buried sutures of 3-0 Vicryl were placed. The skin was re-approximated with a 3-0 prolene suture in vertical mattress or simple fashion. Bacitracin and dry sterile dressing was placed. The specimen was sent to Pathology. There were no complications. documented in this encounter Plan of Treatment Upcoming Encounters Date Type Department Care Team (Late st Contact Info) Description 05/09/2025 10:00 AM EST Clinical Support General Surgery - [place] [address] [facility] [address] [place] [address] 05/16/2025 7:00 AM EST Ancillary Procedure [facility] [address] [facility] [address] [place] [address] documented as of this encounter Procedures Procedure Name Priority Date/Time Associated Diagnosis Comments TISSUE EXAM Routine 04/24/2025 3:05 PM EST Melanoma in situ of torso excluding breast (CMS/[facility] V24, CMS/[facility] V28) documented in this encounter Results * Tissue Exam (04/24/2025 3:05 PM EST) Final Diagnosis Skin, right mid upper back, excision: Dermal scar No atypical melanocytic proliferation identified 04/28/2025 10:58 AM [facility] at 1058 EST Clinical Information Melanoma in situ of torso excluding breast a D03.59 [id number] Right Mid Upper Back Melanoma in situ Medial Stitch @ 9 o'clock 04/28/2025 10:58 AM [facility] Gross Description A. Back, Upper, : Labeled back U . Received in formalin is a 3.4 x 1.3 cm oriented leblanc-white skin ellipse excised to a depth of 1.2 cm. There is a suture on one tip designating 1:00 per the requisition. The epidermis displays a 1.1 x 0.5 cm central slightly depressed leblanc-white well-healed scar, located 0.2 cm from the closest (5:00) margin. The 9-12-3 o'clock margin is inked blue, the 3-6-9 o'clock margin is inked black, and the epidermis of the 3:00 tip is inked green. The specimen is sectioned in a cruciate manner. Water Valve Repairer sections are submitted as follows: 1, cruciate 9:00 and 3:00 tips (3:00 epidermis inked green), two pieces 2-4, sequential sections from 3:00 to 9:00, two pieces each KAYDEN 04/28/2025 10:58 AM [facility] Disclaimer Unless otherwise specified, all tissue is 10% NB formalin fixed and paraffin embedded. 04/28/2025 10:58 AM [facility] Tissue Structure of upper back / Unknown Non-blood Collection / Unknown 04/24/2025 3:05 PM EST 04/24/2025 3:08 PM EST Comment:[id number] Poonam irvin Upper Back Melanoma in situMedial Stitch @ 9 o'clock us Raul Lagunas DO LAB PATHOLOGY ORDERABLES Final Result [facility] [address] [place] [address], documented in this encounter Visit Diagnoses Diagnosis Melanoma in situ of torso excluding breast (CMS/HCC V24, CMS/HCC V28)- Primary documented in this encounter Care Teams Ton Cylinder Inspector Relationship Specialty Start Date End Date Reza Estevez MD [address] [place] [address] PCP - General Internal Medicine 10/01/24 documented as of this encounter
--- NOTE | 2025-04-28 09:54 | A.OFFVIS_ITS ---
Vital Signs 3 04/28/25 09:55 Height 6 ft 2 in Weight 236 lb BMI 30.3 BP 152/66 H Blood Pressure Location Rt brachial Position Sitting Pulse 69 Intake Visit Reasons: R sided inguinial hernia Intake Note: Patient referred by [place] GIRARD for evaluation of a right inguinal hernia. Patient c/o: denies pain, bulge. Imaging: scrotum US~03/20/25 Biometrics Technician Required: No Accompanied by: Self / Same As Patient Allergies No Known Allergies Allergy (Verified 04/28/25 10:01) Medication List - Last Reconciled 04/28/25 by Grady Jose MD aspirin 81 mg PO DAILY carvedilol 12.5 mg PO BID finasteride 5 mg PO DAILY 90 days lisinopril 20 mg PO DAILY rosuvastatin 40 mg PO DAILY HPI Comments Details: 65-year-old gentleman with a history of bilateral hydroceles who underwent follow-up ultrasound of his scrotum and recently a right inguinal hernia was discovered. There is no evidence of hernia on the left side. The patient reports a hernia on the right side is asymptomatic. He denies any pain or obstructive symptoms however he still wishes to have it repaired. He has no history of trauma or surgery or instrumentation to the inguinal regions, scrotum or abdomen. [facility] Medical History (Updated 04/28/25 @ 10:20 by Grady Jose MD) HTN (hypertension) Bunion Pain in hip region after hip replacement Surgical History (Updated 04/28/25 @ 10:02 by GUSTAVO Sanchez) History of open heart surgery Family History (Updated 04/28/25 @ 10:04 by GUSTAVO Sanchez) Mother Breast CA Social History (Updated 04/28/25 @ 10:03 by GUSTAVO Sanchez) Alcohol intake: never Patient Tobacco Use Status: Never used Tobacco Review of Systems Const All systems reviewed & are unremarkable except as noted in HPI and below Physical Exam Vital Signs: Last Vital Signs Pulse 69 04/28/25 09:55 BP 152/66 H 04/28/25 09:55 BMI result Body Mass Index 30.3 Const General: cooperative, healthy appearing, comfortable, no acute distress and well developed Orientation/consciousness: oriented to person, oriented to place and oriented to time HEENT Head: Yes normal to inspection, Yes normocephalic and Yes atraumatic Eyes General: appearance normal, both eyes and all related structures Pupils: Equal, round and reactive pupils present EOM: EOMs intact bilaterally Neck Neck: Yes normal visual inspection Chest Chest palpation & inspection: normal inspection of the chest Resp Effort & Inspection: normal respiratory effort and able to speak in complete sentences Cardio Rate: regular rate Rhythm: regular rhythm GI Inspection: Yes normal to inspection Abdomen image: 2 1. 2-3 cm partially reducible ventral hernia Male genitals images: 2 1. Moderate obvious partially reducible right inguinal scrotal hernia Back/Spine/Pelvis Cervical Spine: normal cervical lordosis Thoracic/Lumbar Spine: thoracic and lumbar spine normal to inspection Skin General skin exam: no rashes or lesions noted Neuro General: oriented to person, oriented to place and oriented to time Cranial nerves: Yes CN's II-XII intact bilaterally and Yes Equal, round and reactive pupils present Assessment & Plan Assessment & Plan (1) Right inguinal hernia: Code(s): K40.90 - Unilateral inguinal hernia, without obstruction or gangrene, not specified as recurrent Category: Medical Plan: I reviewed options with the patient. He desires surgical repair so we reviewed in detail the nature of a laparoscopic possible open right, possible bilateral inguinal hernia repair with mesh and possible ventral hernia repair with mesh. I reviewed with them the risks are involved in session undertaken. These include but are not limited to, the risk of bleeding, the risk of infection, the risk of hernia recurrence, the risk of chronic pain, the risk of damage to surrounding structures with recognized and unrecognized at the time of surgery, and the risk of unsightly scarring were all reviewed with the patient in detail. I told him that any operation involving general anesthesia also until the risks of stroke, heart attack, DVT and pulmonary embolism. He indicated that he understood. He told me that he carefully considered his options. He indicated that he understood and accepted the risks that he described as inherent to the surgery and lastly indicated that despite the risks he is still wished to proceed with operative intervention. Coding Level of Care Code New Pt Level 3 (39927) Diagnoses Right inguinal hernia K40.90 Time Spent (min) 30
[2025-04-28 09:55] VITALS: BP 152/66; PULSE 69; BMI 30.3
--- OUTSIDE RECORDS SUMMARY | 2025-04-28 11:46 | XMS_ITS | Clinical Summary ---
Author Organization [facility] Address [address] [place] [address] Care Team Providers Care Concrete Hopper Operator Name Role Phone No, Pcp CUSTOMER SERVICE SALES CONSULTANT Primary Care Provider Unavailabl e Social History Tobacco Use Types Packs/Day Years Used Date Smoking Tobacco: Never Assessed Sex and Gender Information Value Date Recorded Sex Assigned at Not on file Legal Sex Male 10:40 AM EST Gender Identity Not on file Sexual Orientation Not on file Plan of Treatment Not on file Medical Devices Not on file Care Teams Concrete Hopper Operator Relationship Specialty Start Date End Date No, Pcp, CUSTOMER SERVICE SALES CONSULTANT N/A Do not use PCP - General Family Medicine 06/06/20
--- OUTSIDE RECORDS SUMMARY | 2025-04-28 11:46 | XMS_ITS | Clinical Summary ---
Author Organization [facility] Address [address] [place] [address] Phone Care Team Providers Care Key Attendant Name Role Phone Reza Estevez MD Primary Care Provider + [phone] Allergies No known active allergies Medications carvediloL (COREG) 12.5 mg tablet Take 1 tablet (12.5 mg total) by mouth 2 (two) times a day. Active aspirin 81 mg chewable tablet Chew 1 tablet (81 mg total). 08/22/2012 Active celecoxib (CeleBREX) 200 mg capsule Take 1 capsule (200 mg total) by mouth 1 (one) time each day if needed. 03/26/2025 Active cholecalciferol (VITAMIN D-3) 25 mcg (1,000 unit) capsule Take 1 capsule (1,000 Units total) by mouth 1 (one) time each day. Active finasteride (PROSCAR) 5 mg tablet Take 1 tablet (5 mg total) by mouth 1 (one) time each day. 09/22/2023 Active lisinopriL (PRINIVIL,ZESTR IL) 20 mg tablet Take 1 tablet (20 mg total) by mouth 1 (one) time each day. Active pravastatin (PRAVACHOL) 80 mg tablet Take 1 tablet (80 mg total) by mouth. 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 (CMS/HCC V24, CMS/HCC V28) (Primary Dx) 04/08/2025 9:15 AM EST Consult General Surgery [address] [address] Raul Lagunas, DO Melanoma in situ of torso excluding breast (CMS/HCC V24, CMS/HCC V28) (Primary Dx) from Last 3 Months Surgical History Surgery Date Site/Laterality Comments OTHER SURGICAL HISTORY PROCEDURE: [place] ANES HRT PERICRD SAC&GRT VSLS W/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 >1MO PO; COMMENT: valve replacement patient [...] Mass Index 31.2 04/24/2025 2:39 PM EST Plan of Treatment Upcoming Encounters Date Type Department Care Team ([facility] Contact Info) Description 05/09/2025 10:00 AM EST Clinical Support General Surgery [address] [address] 05/16/2025 7:00 AM EST Ancillary Procedure [facility] - [address] [place] [address] Health Maintenance Due Date Last Done Comments Colorectal Cancer Screening: Colonoscopy 1960 DTaP,Tdap,and Td Vaccines (1 - Tdap) 1979 Pneumococcal Vaccine: 50+ Years (2 of 2 - PCV) 08/18/2013 08/18/2012 Abdominal Aortic Aneurysm (AAA) Screen 05/08/2022 Cholesterol Screening (Lipid Panel) 05/08/2022 Hepatitis C Screening 05/08/2022 Medicare Annual Wellness Visit 05/08/2022 Social Influencers of Health Screening 05/08/2022 Hypertension/CHF/CAD Annual BMP Blood Test 05/12/2022 Depression Screening 06/05/2024 COVID-19 Vaccine ( season) 2025 02/23/2024, 05/11/2023, 07/08/2022, Additional history exists Influenza Vaccine (#1) 2025 , 03/23/2023, 04/24/2021, Additional history exists Falls Risk Assessment 2025 RSV Immunization Adult Patients (1 - 1-dose 75+ series) 2035 Zoster Vaccines Completed 03/28/2018, 12/22/2017 HIB Vaccines Aged Out No longer eligi [...] on patient's age to complete this topic Procedures Procedure Name Priority Date/Time Associated Diagnosis Comments TISSUE EXAM Routine 04/24/2025 3:05 PM EST Melanoma in situ of torso excluding breast (CMS/HCC V24, CMS/HCC V28) from Last 3 Months Results * Tissue Exam (04/24/2025 3:05 PM EST) Final Diagnosis Skin, right mid upper back, excision: Dermal scar No atypical melanocytic proliferation identified 04/28/2025 10:[address] [facility] at 1058 EST Clinical Information Melanoma in situ of torso excluding breast a D03.59 [id number] Right Mid Upper Back Melanoma in situ Medial Stitch @ 9 o'clock 04/28/2025 10:[address] [facility] Gross Description A. Back, Upper, : Labeled back U . Received in formalin is a 3.4 x 1.3 cm oriented leblnac-white skin ellipse excised to a depth of [...] specimen is sectioned in a cruciate manner. Belt Maker Helper sections are submitted as follows: 1, cruciate 9:00 and 3:00 tips (3:00 epidermis inked green), two pieces 2-4, sequential sections from 3:00 to 9:00, two pieces each KAYDEN 04/28/2025 10:[address] [facility] Disclaimer Unless otherwise specified, all tissue is 10% NB formalin fixed and paraffin embedded. 04/28/2025 10:[address] [facility] Tissue Structure of upper back / Unknown Non-blood Collection / Unknown 04/24/2025 3:05 PM EST 04/24/2025 3:08 PM EST Comment:[id number] Mi d Upper Back Melanoma in situMedial Stitch @ 9 o'clock us Raul Lagunas DO LAB PATHOLOGY ORDERABLES Final Result [facility] [address] [place] [address], from Last 3 Months Insurance [facility] MEDICARE Care Teams Key Attendant Relationship Specialty Start Date End Date Reza Estevez MD [address] [place] [address] PCP - General Internal Medicine 10/01/24
== END 2025-04-28 10:15 | disposition home or self-care (01) ==
LOC: HO.HGS 09:54
PROVIDERS: PCP Internal Medicine; Visit Provider Surgery
DX: K40.90 Unilateral inguinal hernia, without obstruction or gangrene, not specified as recurrent (principal)
CPT/HCPCS: 99203

== ENCOUNTER 2025-05-05 08:13 | Outpatient (REF) | payer MEDICARE, OTHER, SELFPAY ==
--- OUTSIDE RECORDS SUMMARY | 2025-03-25 10:21 | XMS_ITS ---
Author Organization [facility] Address [address] [place] [address] Care Team Providers Care Hot Strip Mill Supervisor Name Role Phone ELIS KENT Primary Care Provider REASON FOR VISIT bilateral leg issue Encounters Encounter Location Date Provider Diagnosis [facility] [address] [place] [address] 03/25/2025 ELIS KENT PLAN OF TREATMENT Next Appt Details Provider Name:ELIS RODRIGUEZ, 09/24/2025 08:00:00 AM, [address] [place], [address],
--- OUTSIDE RECORDS SUMMARY | 2025-03-26 04:30 | XMS_ITS ---
Author Organization [facility] Address [address] [place] [address] Care Team Providers Care Hand Tacker Name Role Phone ELIS KENT Primary Care Provider [phone] ALLERGIES No Known Allergies REASON FOR VISIT 42 bilateral leg issue, would like flu vaccine MEDICATIONS Medication SIG (Take, Route, Frequency, Duration) Notes Start Date End Date Status Vitamin D3 25 MCG (1000 UT) 1 orally once a day Active Carvedilol 12.5 MG TAKE 1 TABLET BY CASSIUS TH TWICE DAILY Orally Twice a day for 90 days Active Rosuvastatin Calcium 40 MG TAKE 1 TABLET BY MOUTH DAILY orally once a day for 90 days Active Lisinopril 20 MG TAKE 1 TABLET BY CASSIUS TH EVERY DAY Orally once a day for 90 days Active Finasteride 5 MG 1 tablet Orally Once a day for 30 day(s) Active Aspirin 81 81 MG 1 tablet Orally Once a day for 30 day(s) Active SOCIAL HISTORY Tobacco Use: Social History Observation Description Date Details (start date - stop date) Former Smoker NA - NA Sex Assigned At : Social History Observation Description Sex Assigned At Unknown Smoking Question Answer Notes Are you a: former smoker Section Notes: pt never smoke VITAL SIGNS Height 72.75 in 03/26/2025 Weight 241 lbs 03/26/2025 Blood pressure systolic 128 mm Hg 03/26/20 25 Blood pressure diastolic 64 mm Hg 025 BMI 32.01 kg/m2 03/26/2025 Encounters Encounter Location Date Provider Diagnosis [facility] [address] [place] [address] 03/26/2025 ELIS KENT Disorder of lipoprotein metabolism, unspecified E78.9 ; Essential (primary) hypertension I10 ; Cardiac murmur, unspecified R01.1 ; Skin cancer screening Z12.83 ; Heart failure with mildly reduced ejection fraction I50.22 ; Bradycardia, unspecified R00.1 ; Other sleep disorders G47.8 ; Fatty liver K76.0 ; Hip pain, unspecified laterality M25.559 and Dorsalgia of lumbar region M54.50 ASSESSMENTS Encounter Date Diagnosis Assessment Notes Treatment Notes Treatment Clinical Notes Section Notes 03/26/2025 Disorder of lipoprotein metabolism, unspecified (ICD-10 - E78.9) Continue rosuvastatin. Check lipid profile and LFTs. Total cholesterol goal less than 200 LDL less than 100 03/26/2025 Essential (primary) hypertension (ICD-10 - I10) Continue carvedilol. Blood pressure is well-controlled. No change in therapy check EKG 03/26/2025 Cardiac murmur, unspecified (ICD-10 - R01.1) Minimal murmur. Echocardiogram 202324 grade 2 diastolic dysfunction trace MR 03/26/2025 Skin cancer screening (ICD-10 - Z12.83) Recommend Derm follow-up here 03/26/2025 Heart failure with mildly reduced ejection fraction (ICD-10 - I50.22) No overt CHF physical exam vital signs stable. Follow-up cardiac echo 03/26/2025 Bradycardia, unspecified (ICD-10 - R00.1) On secondary to carotid carvedilol. Check EKG no symptoms 03/26/2025 Other sleep disorders (ICD-10 - G47.8) 03/26/2025 Fatty liver (ICD-10 - K76.0) Stable physical exam normal check LFTs. Send update ultrasound of liver 03/26/2025 Hip pain, unspecified laterality (ICD-10 - M25.559) Physical exam as above. Neurologically intact. Will check a CBC and sed rate. Check bilateral hip x-rays and spinal x-ray. Try Celebrex for 2 weeks 03/26/2025 Dorsalgia of lumbar region (ICD-10 - M54.50) No red flag symptoms neurologically intact check x-ray 03/26/2025 Other Right inguinal hernia. Awaiting surgical consultation PLAN OF TREATMENT Treatment Notes Assessment Notes Disorder of lipoprotein meta bolism, unspecified Continue rosuvastatin. Check lipid profi le and LFTs. Total cholesterol goal less than 200 LDL less than 100 Essential (primary) hypertension Continu e carvedilol. Blood pressure is well-controlled. No change in therapy check EKG Cardiac murmur, unspecified Minimal murm ur. Echocardiogram 202324 grade 2 diastolic dysfunction trace MR Skin cancer screening Recommend Derm fol low-up here Heart failure with mildly re duced ejection fraction No overt CHF physical exam vital signs stable. Follow-up cardiac echo Bradycardia, unspecified On secondary to carotid carvedilol. Check EKG no symptoms Fatty liver Stable physical exam normal check LFTs. Send update ultrasound of liver Hip pain, unspecified laterality Physica l exam as above. Neurologically intact. Will check a CBC and sed rate. Check bilateral hip x-rays and spinal x-ray. Try Celebrex for 2 weeks Dorsalgia of lumbar region No red flag s ymptoms neurologically intact check x-ray Other Right inguinal herni a. Awaiting surgical consultation Pending Test Test Name Order Date Echocardiogram 03/26/2025 Next Appt Details Follow Up: Follow-up due in 6 months labs pending EKG today, Reason: Provider Name:ELIS RODRIGUEZ, 09/24/2025 08:00:00 AM, [address] [place] [address], [phone], Progress Notes * Examination Category Sub-Category Detail Notes Category Not es General Examination HEENT: Conjunctiva pink anicteric mucous membranes moist oropharynx clear TMs are sinus clear EACs clear fundi negative Neck: Supple carotids 2+ n o bruits lymphadenopathy no thyromegaly Heart: Regular rate and rhy thm no significant murmurs rubs or gallops Lungs: clear to auscultatio n Abdomen: Soft bowel sounds po sitive no paraspinal megaly no masses no rebound no guarding right inguinal hernia reducible testicles nontender Extremities: no edema, pulses 2 p tabatha bilaterally General Appearance Pleasant well-develo ped well-nourished white male appearing stated age no apparent distress Neuro alert and oriented x 3, CN 2-12 intact, motor 5/5 bilaterally proximally and distally in all 4 extremities, no focal abnormality Musculoskeletal Right hip mild disco mfort with flexion and internal rotation external rotation okay left hip pretty good range of motion all directions History and Physical Notes * HPI (History of Present Illness) Category Sub-Category Detail Notes Category Not es General Patient complai hiram of 2 months of bilateral hip pain. He has had a right total hip replacement in the distant past. The right hip is really bothering him more than the left. There was no injury no trauma. He was wondering whether was related to a recent diagnosis of a hernia that he has is being seen in near future by surgery after being referred by urology. Occasional discomfort down the right thigh. There is no significant back pain no lower extremity weakness numbness tingling. No fever chills or sweats. Urination seems okay bowels are moving regularly. Has not taken any anti-inflammatories. Just Tylenol at nighttime. Coincidentally he said the pain in the last 24 hours has abated somewhat
--- OUTSIDE RECORDS SUMMARY | 2025-03-26 05:07 | XMS_ITS ---
Author Organization [facility] Address [address] [place] [address] Care Team Providers Care Drug Purchaser Name Role Phone ELIS KENT Primary Care Provider REASON FOR VISIT celebrex MEDICATIONS Medication SIG (Take, Route, Fr equency, Duration) Notes Start Date End Date Status CeleBREX 200 MG 1 capsule as needed Orally Once a day for 30 day(s) 03/26/2025 Active Encounters Encounter Location Date Provider Diagnosis [facility] [address] [place] [address] 03/26/2025 ELIS KENT PLAN OF TREATMENT Medication Medication Name Sig Start Date Stop Date Notes CeleBREX 200 MG 1 capsule as needed Orally Once a day for 30 day(s) 03/26/2025 Next Appt Details Provider Name:ELIS RODRIGUEZ, 09/24/2025 08:00:00 AM, [address] [place], [address],
--- OUTSIDE RECORDS SUMMARY | 2025-03-26 05:30 | XMS_ITS ---
Author Organization [facility] Address [address] [place] [address] Care Team Providers Care Saturator Operator Name Role Phone ELIS KENT Primary Care Provider HYDABURG, NURSING Unavailable [phone] REASON FOR VISIT flu shot IMMUNIZATIONS Vaccine Route Administration Date Status Comme nts Influenza, Flublok IM Intramuscular 03/26/2025 Administere d Encounters Encounter Location Date Provider Diagnosis [address] [address] 03/26/2025 NURSING HYDABURG Encounter for immunization Z23 ASSESSMENTS Encounter Date Diagnosis Assessment Notes Treatment Notes Treatment Clinical Notes Section Notes 03/26/2025 Encounter for immunization (ICD-10 - Z23) Influenza vaccine administered. Patient counseled and VIS sheet given. PLAN OF TREATMENT Treatment Notes Assessment Notes Encounter for immunization Influenza vac cine administered. Patient counseled and VIS sheet given. Next Appt Details Provider Name:ELIS RODRIGUEZ, 09/24/2025 08:00:00 AM, [address] [place] [address], [phone],
--- OUTSIDE RECORDS SUMMARY | 2025-03-31 02:55 | XMS_ITS ---
Author Organization [facility] Address [address] [place] [address] Care Team Providers Care Refinery Operator Helper Name Role Phone ELIS KENT Primary Care Provider [phone] REASON FOR VISIT xray Encounters Encounter Location Date Provider Diagnosis [facility] [address] [place] [address] 03/31/2025 ELIS KENT PLAN OF TREATMENT Next Appt Details Provider Name:ELIS RODRIGUEZ, 09/24/2025 08:00:00 AM, [address] [place], [address],
--- OUTSIDE RECORDS SUMMARY | 2025-03-31 04:59 | XMS_ITS ---
Author Organization [facility] Address [address] [place] [address] Care Team Providers Care Expeller Worker Name Role Phone ELIS KENT Primary Care Provider [phone] REASON FOR VISIT xray Encounters Encounter Location Date Provider Diagnosis [facility] [address] [place] [address] 03/31/2025 ELIS KENT PLAN OF TREATMENT Next Appt Details Provider Name:ELIS RODRIGUEZ, 09/24/2025 08:00:00 AM, [address] [place], [address],
--- OUTSIDE RECORDS SUMMARY | 2025-04-02 04:00 | XMS_ITS ---
Author Organization [facility] Address [address] [place] [address] Care Team Providers Care Nursing Program Director Name Role Phone ELIS KENT Primary Care Provider ALLERGIES No Known Allergies REASON FOR VISIT 6mo F/U, had flu shot 2024 MEDICATIONS Medication SIG (Take, Route, Frequency, Duration) Notes Start Date End Date Status Vitamin D3 25 MCG (1000 UT) 1 orally once a day Active Rosuvastatin Calcium 40 MG TAKE 1 TABLET BY MOUTH DAILY orally once a day for 90 days Active Carvedilol 12.5 MG TAKE 1 TABLET BY CASSIUS TH TWICE DAILY Orally Twice a day for 90 days Active CeleBREX 200 MG 1 capsule as needed Orally Once a day for 30 day(s) 03/26/2025 Active Lisinopril 20 MG TAKE 1 TABLET BY CASSIUS TH EVERY DAY Orally once a day for 90 days Active Finasteride 5 MG 1 tablet Orally Once a day for 30 day(s) Active Aspirin 81 81 MG 1 tablet Orally Once a day for 30 day(s) Active SOCIAL HISTORY Tobacco Use: Social History Observation Description Date Details (start date - stop date) Never Smoker NA - NA Sex Assigned At : Social History Observation Description Sex Assigned At Unknown Smoking Question Answer Notes Are you a: never smoker Section Notes: pt never smoke VITAL SIGNS Height 72.75 in 04/02/2025 Weight 240 lbs 04/02/2025 Blood pressure systolic 124 mm Hg 04/02/20 25 Blood pressure diastolic 70 mm Hg 025 BMI 31.88 kg/m2 04/02/2025 Encounters Encounter Location Date Provider Diagnosis [facility] [address] [place] [address] 04/02/2025 ELIS KENT Disorder of lipoprotein metabolism, unspecified E78.9 ; Essential (primary) hypertension I10 ; Cardiac murmur, unspecified R01.1 ; Elevated PSA R97.20 ; Alcoholic fatty liver K70.0 ; Skin cancer screening Z12.83 ; Heart failure with mildly reduced ejection fraction I50.22 ; Hip pain, unspecified laterality M25.559 ; Carotid artery disease, unspecified laterality, unspecified type I77.9 ; Deficiency of vitamin B E53.9 and Low vitamin D level R79.89 ASSESSMENTS Encounter Date Diagnosis Assessment Notes Treatment Notes Treatment Clinical Notes Section Notes 04/02/2025 Disorder of lipoprotein metabolism, unspecified (ICD-10 - E78.9) Cholesterol less than 200 LDL less than 70 therefore at goal. Recheck every 6 months 04/02/2025 Essential (primary) hypertension (ICD-10 - I10) Blood pressure stable well-controlled recommend 10 to 15 pound weight loss. Walk 30 minutes a day. No added salt diet 04/02/2025 Cardiac murmur, unspecified (ICD-10 - R01.1) Stable unchanged by physical exam no symptoms 04/02/2025 Elevated PSA (ICD-10 - R97.20) 04/02/2025 Alcoholic fatty liver (ICD-10 - K70.0) Exercise weight loss alcohol moderation recheck LFTs in 6 months 04/02/2025 Skin cancer screening (ICD-10 - Z12.83) Follow-up with dermatology q. year use SPF greater than 30 for help sun exposed areas on prolonged sun exposure 04/02/2025 Heart failure with mildly reduced ejection fraction (ICD-10 - I50.22) Physical exam normal no symptoms check labs follow-up with cardiology yearly 04/02/2025 Hip pain, unspecified laterality (ICD-10 - M25.559) Physical exam normal x-rays mild arthritis left hip arthroplasty right hip. Will recheck labs. Recommend Celebrex for 3 to 4 weeks. Add Tylenol for same duration. Physical therapy referral. If no improvement will need to see rheumatology and/or orthopedics 04/02/2025 Carotid artery disease, unspecified laterality, unspecified type (ICD-10 - I77.9) Stable recheck ultrasound yearly LDL goal less than 70 04/02/2025 Deficiency of vitamin B (ICD-10 - E53.9) 04/02/2025 Low vitamin D level (ICD-10 - R79.89) PLAN OF TREATMENT Treatment Notes Assessment Notes Disorder of lipoprotein meta bolism, unspecified Cholesterol less than 200 LDL less than 70 therefore at goal. Recheck every 6 months Essential (primary) hypertension Blood p ressure stable well-controlled recommend 10 to 15 pound weight loss. Walk 30 minutes a day. No added salt diet Cardiac murmur, unspecified Stable uncha nged by physical exam no symptoms Alcoholic fatty liver Exercise weight lo ss alcohol moderation recheck LFTs in 6 months Skin cancer screening Follow-up with [facility] q. year use SPF greater than 30 for help sun exposed areas on prolonged sun exposure Heart failure with mildly re duced ejection fraction Physical exam normal no symptoms check labs follow-up with cardiology yearly Hip pain, unspecified laterality Physica l exam normal x-rays mild arthritis left hip arthroplasty right hip. Will recheck labs. Recommend Celebrex for 3 to 4 weeks. Add Tylenol for same duration. Physical therapy referral. If no improvement will need to see rheumatology and/or orthopedics Carotid artery disease, unsp ecified laterality, unspecified type Stable recheck ultrasound yearly LDL goa l less than 70 Next Appt Details Follow Up: 6 months labs pen ding, Reason: Provider Name:ELIS RODRIGUEZ, 09/24/2025 08:00:00 AM, [address] [place] [address], [phone], Progress Notes * Examination Category Sub-Category Detail Notes Category Not es General Examination HEENT: Conjunctiva pink anicteric mucous membranes moist oropharynx clear TMs clear sinus. EACs clear Pleasant well-developed well-nourished white male appearing stated age no apparent distress mildly overweight Neck: Supple carotids 2+ n o bruits lymphadenopathy no thyromegaly Heart: RRR, 1/6 diastolic m urmur Lungs: clear to auscultatio n Abdomen: soft, non tender/non distended, no rebound tenderness, no guarding or rigidity, no masses palpated, no hepatosplenomegaly, normal active bowel sounds Extremities: no edema, pulses 2 p tabatha bilaterally General Appearance Pleasant well-develo ped well-nourished white male appearing stated age no apparent distress Skin: normal, no rash, nimo ign appearing moles Neuro alert and oriented x 3, CN 2-12 intact, motor 5/5 bilaterally proximally and distally in all 4 extremities, no focal abnormality, straight leg raise negative bilaterally Musculoskeletal Right and left hip a nd right and left knee full range of motion. No muscle atrophy. Straight leg raising normal.
--- OUTSIDE RECORDS SUMMARY | 2025-04-16 03:30 | XMS_ITS ---
Author Organization [facility] Address [address] [place] [address] Care Team Providers Care Subway Car Repairer Name Role Phone ELIS KENT Primary Care Provider REASON FOR VISIT (PHONE) Encounters Encounter Location Date Provider Diagnosis [facility] [address] [place] [id number] 04/16/2025 ELIS KENT Pain in left shoulder M25.512 ; Pain in right shoulder M25.511 and Abnormal liver ultrasound R93.2 ASSESSMENTS Encounter Date Diagnosis Assessment Notes Treatment Notes Treatment Clinical Notes Section Notes 04/16/2025 Pain in left shoulder (ICD-10 - M25.512) 04/16/2025 Pain in right shoulder (ICD-10 - M25.511) 04/16/2025 Abnormal liver ultrasound (ICD-10 - R93.2) PLAN OF TREATMENT Pending Test Test Name Order Date MRI Abdomen with and without contrast: L iver Mass Protocol 04/16/2025 Next Appt Details Provider Name:ELIS RODRIGUEZ, 09/24/2025 08:00:00 AM, [address] [place], [address],
--- OUTSIDE RECORDS SUMMARY | 2025-04-18 05:53 | XMS_ITS ---
Author Organization [facility] Address [address] [place] [address] Care Team Providers Care Galley Stripper Name Role Phone ELIS KENT Primary Care Provider REASON FOR REFERRAL Reason Referral to Dr. Christine walters [place] [facility] Diagnosis 1 Primary osteoarthrit is, right shoulder (M19.011) Referral Organization [facility] Referring Provider First Name ELIS Referring Provider Last Name DONTE Referring Provider Speciality Internal M edicine Referred Provider ART WALTERS General Notes Makayla HEMPHILL ENOCH 025 01:35:51 PM > faxed all to dr amos office xray notes Referral Priority Routine REASON FOR VISIT xray PROBLEMS Problem Type ICD Code Onset Dates Problem Status W/U Status Risk SNOMED Code Notes Problem Primary osteoarthriti s, right shoulder (M19.011) Active confirmed [id number] Problem Primary osteoarthriti s, left shoulder (M19.012) Active confirmed [id number] Encounters Encounter Location Date Provider Diagnosis [facility] [address] [place] [address] 2025 ELIS KENT Primary osteoarthritis, right shoulder M19.011 and Primary osteoarthritis, left shoulder M19.012 ASSESSMENTS Encounter Date Diagnosis Assessment Notes Treatment Notes Treatment Clinical Notes Section Notes 2025 Primary osteoarthritis, right shoulder (ICD-10 - M19.011) 2025 Primary osteoarthritis, left shoulder (ICD-10 - M19.012) PLAN OF TREATMENT Referrals Referral Date Details Referral to Dr. Christine walters [place] [facility], ART WALTERS Next Appt Details Provider Name:ELIS RODRIGUEZ, 09/24/2025 08:00:00 AM, [address] [place], [phone], Consultation Request Notes Referral Date Referring Provider Referred Provider Not es 2025 ELIS KENT JENNIE Referral t o Dr. Shayy walters [place] [facility]
--- OUTSIDE RECORDS SUMMARY | 2025-04-28 08:46 | XMS_ITS ---
Author Organization [facility] Address [address] [place] [address] Care Team Providers Care Captain'S Assistant Name Role Phone ELIS KENT Primary Care Provider REASON FOR VISIT info needed for surgery Encounters Encounter Location Date Provider Diagnosis [facility] [address] [place] [phone] 04/28/2025 ELIS KENT PLAN OF TREATMENT Next Appt Details Provider Name:ELIS RODRIGUEZ, 09/24/2025 08:00:00 AM, [address] [place], [address],
--- OUTSIDE RECORDS SUMMARY | 2025-05-05 08:27 | XMS_ITS | Patient Health Record ---
Author Organization [facility] Address [address] [place] [address] Care Team Providers Care Tray Casting Machine Operator Name Role Phone ELIS KENT Primary Care Provider NERY, NURSING Unavailable [phone] ALLERGIES No Known Allergies REASON FOR REFERRAL Reason elevated psa Diagnosis 1 Elevated prostate sp ecific antigen [PSA] (R97.20) Referral Organization [facility] Referring Provider First Name ELIS Referring Provider Last Name DONTE Referring Provider Speciality Internal edicine Referred Provider Specialty Urology General Notes Yessy HEMPHILL Admin 03:42:14 PM > per incoming document from [facility] Urology pt has appt on 01/29/25>r97.20, Yessy HEMPHILL P Admin 04/10/2025 01:29:26 PM > no referral required>faxed to [facility] Urology>encounter closed Referral Priority Routine Referral Appointment Date 01/29/[address] Christine walters [place] orthopedic surgery Diagnosis 1 Primary osteoarthrit is, right shoulder (M19.011) Referral Organization [facility] Azam casillas Referring Provider First Name ELIS Referring Provider Last Name DONTE Referring Provider Speciality Internal edicine Referred Provider ART WALTERS General Notes Makayla HEMPHILL [place] 025 01:35:51 PM > faxed all to dr amos office xray notes Referral Priority Routine MEDICATIONS Medication SIG (Take, Route, Frequency, Duration) Notes Start Date End Date Status Carvedilol 12.5 MG TAKE 1 TABLET BY TWICE DAILY Orally Twice a day for 90 days Active Finasteride 5 MG 1 tablet Orally Once a day for 30 day(s) Active Vitamin D3 25 MCG (1000 UT) 1 orally once a day Active Aspirin 81 81 MG 1 tablet Orally Once a day for 30 day(s) Active Rosuvastatin Calcium 40 MG TAKE 1 TABLET BY MOUTH DAILY orally once a day for 90 days Active CeleBREX 200 MG 1 capsule as needed Orally Once a day for 30 day(s) 03/26/2025 Active Lisinopril 20 MG TAKE 1 TABLET BY CASSIUS TH EVERY DAY Orally once a day for 90 days Active IMMUNIZATIONS Vaccine Route Administration Date Status Comme nts Influenza, Flublok IM Intramuscular 03/26/2025 Administere d Influenza, Fluzone Quad IM Intramuscular 03/23/2023 Admini stered SOCIAL HISTORY Tobacco Use: Social History Observation Description Date Details (start date - stop date) Never Smoker NA - NA Sex Assigned At : Social History Observation Description Sex Assigned At Unknown Smoking Question Answer Notes Are you a: never smoker Section Notes: pt never smoke pt never smoke pt never smoke pt never smoke pt never smoke pt never smoke pt never smoke PROBLEMS Problem Type ICD Code Onset Dates Problem Status W/U Status Risk SNOMED Code Notes Problem Myalgia (729.1) Active confirmed Myalgi a (33940525) Problem Essential (primary) hypertension (I10) Active confirmed Essential hypertension (26017244) Problem Fatty liver disease, nonalcoholic (K76.0) Active confirmed 3799550325 Problem Primary osteoarthritis, left shoulder (M19.012) Active confirmed 236651108527186 Problem Unspecified osteoarthritis, unspecified site (M19.90) Active confirmed Osteoarthritis (945523406) Problem Disorder of lipoprotein metabolism, unspecified (E78.9) Active confirmed Disorder of lipoprotein storage and metabolism (disorder) (836091894) Problem Other sleep disorders (G47.8) Active confirmed Sleep disorder (48994168) Problem Alcoholic fatty liver (K70.0) Active confirmed Alcoholic fatt y liver (34687737) Problem Primary osteoarthritis, right shoulder (M19.011) Active confirmed 475435994145695 Problem Enlarged prostate without lower urinary tract symptoms (N40.0) Active confirmed Enlarged prosta te (435503686) Problem Tinnitus, unspecified laterality (H93.19) Active confirmed 78089072 Problem Elevated prostate specific antigen [PSA] (R97.20) Active confirmed 259280441 Problem Hearing loss, unspecified hearing loss type, unspecified laterality (H91.90) Active confirmed 43254580 Problem Carotid artery disease, unspecified laterality, unspecified type (I77.9) Active confirmed 015319580 Problem Heart failure with mildly reduced ejection fraction (I50.22) Active confirmed 757855164 VITAL SIGNS Blood pressure diastolic 70 mm Hg 04/02/2025 Height 72.75 in 04/02/2025 Blood pressure systolic 124 mm Hg 04/02/2025 Weight 240 lbs 04/02/2025 BMI 31.88 kg/m2 04/02/2025 Encounters Encounter Location Date Provider Diagnosis [place] [id number] 09/18/2024 [place] [address] 09/25/2024 ELIS KENT Disorder of lipoprotein metabolism, unspecified E78.9 ; Essential (primary) hypertension I10 ; Cardiac murmur, unspecified R01.1 ; Elevated PSA R97.20 ; Other sleep disorders G47.8 ; Heart failure with mildly reduced ejection fraction I50.22 ; Carotid artery disease, unspecified laterality, unspecified type I77.9 and Fatty liver disease, nonalcoholic K76.0 [place] [id number] 09/26/2024 ELIS [place] [id number] 10/01/2024 ELIS [place] [id number] 11/26/[address] [address] 02/07/[address] [address] 03/21/[address] [address] 03/25/2025 ELIS [place] [id number] 03/26/2025 ELIS KENT Disorder of lipoprotein metabolism, unspecified E78.9 ; Essential (primary) hypertension I10 ; Cardiac murmur, unspecified R01.1 ; Skin cancer screening Z12.83 ; Heart failure with mildly reduced ejection fraction I50.22 ; Bradycardia, unspecified R00.1 ; Other sleep disorders G47.8 ; Fatty liver K76.0 ; Hip pain, unspecified laterality M25.559 and Dorsalgia of lumbar region M54.50 [place] [id number] 03/26/2025 ELIS KENT [place] [id number] 03/26/2025 [facility] [place] Encounter for immunization Z23 [place] [phone] 03/31/2025 [place] [address] 03/31/2025 [place] [address] 04/02/2025 ELIS KENT Disorder of lipoprotein metabolism, [...] E53.9 and Low vitamin D level R79.89 [place] [phone] 04/16/2025 ELIS KENT Pain in left shoulde r M25.512 ; Pain in right shoulder M25.511 and Abnormal liver ultrasound R93.2 [place] [id number] 2025 ELIS KENT Primary osteoarthritis, right shoulder M19.011 and Primary osteoarthritis, left shoulder M19.[address] [address] 04/28/2025 ELIS KENT ASSESSMENTS Encounter Date Diagnosis Assessment Notes Treatment Notes Treatment Clinical Notes Section Notes 2025 Primary osteoarthritis, right shoulder (ICD-10 - M19.011) 2025 Primary osteoarthritis, left shoulder (ICD-10 - M19.012) 04/16/2025 Pain in left shoulder (ICD-10 - M25.512) 03/26/2025 Encounter for immunization (ICD-10 - Z23) Influenza vaccine administered. Patient counseled and VIS sheet given. 03/26/2025 Disorder of lipoprotein metabolism, unspecified (ICD-10 - E78.9) Continue rosuvastatin. Check lipid profile and LFTs. Total cholesterol goal less than 200 LDL less than 100 03/26/2025 Essential (primary) hypertension (ICD-10 - I10) Continue carvedilol. Blood pressure is well-controlled. No change in therapy check EKG 04/02/2025 Disorder of lipoprotein metabolism, unspecified (ICD-10 - E78.9) Cholesterol less than 200 LDL less than 70 therefore at goal. Recheck every 6 months 04/02/2025 Essential (primary) hypertension (ICD-10 - I10) Blood pressure stable well-controlled recommend 10 to 15 pound weight loss. Walk 30 minutes a day. No added salt diet 09/25/2024 Disorder of lipoprotein metabolism, unspecified (ICD-10 [...] loss recommended liberalize potassium in the diet 04/16/2025 Pain in right shoulder (ICD-10 - M25.511) 09/25/2024 Cardiac murmur, unspecified (ICD-10 - R01.1) Echo up-to-date. No symptoms. Patient has had a history of mitral valve repair he also has moderate aortic insufficiency. Follow-up echo in 6 months 04/02/2025 Cardiac murmur, unspecified (ICD-10 - R01.1) Stable unchanged by physical exam no symptoms 03/26/2025 Cardiac murmur, unspecified (ICD-10 - R01.1) Minimal murmur. Echocardiogram 202324 grade 2 diastolic dysfunction trace MR 04/16/2025 Abnormal liver ultrasound (ICD-10 - R93.2) 09/25/2024 Elevated PSA (ICD-10 - R97.20) Stable BPH recheck PSA 04/02/2025 Elevated PSA (ICD-10 - R97.20) 03/26/2025 Skin cancer screening (ICD-10 - Z12.83) Recommend Derm follow-up here 09/25/2024 Other sleep disorders (ICD-10 - G47.8) 03/26/2025 Heart failure with mildly reduced ejection fraction (ICD-10 - I50.22) No overt CHF physical exam vital signs stable. Follow-up cardiac echo 04/02/2025 Alcoholic fatty liver (ICD-10 - K70.0) Exercise weight loss alcohol moderation recheck LFTs in 6 months 03/26/2025 Bradycardia, unspecified (ICD-10 - R00.1) On secondary to carotid carvedilol. Check EKG no symptoms 04/02/2025 Skin cancer screening (ICD-10 - Z12.83) Follow-up with dermatology q. year use SPF greater than 30 for help sun exposed areas on prolonged sun exposure 09/25/2024 Heart failure with mildly reduced ejection fraction (ICD-10 - I50.22) No overt CHF physical exam stable check BMP 04/02/2025 Heart failure with mildly reduced ejection fraction (ICD-10 - I50.22) Physical exam normal no symptoms check labs follow-up with cardiology yearly 03/26/2025 Other sleep disorders (ICD-10 - G47.8) 09/25/2024 Carotid artery disease, unspecified laterality, unspecified type (ICD-10 - I77.9) Baby aspirin set up carotid ultrasound LDL goal less than 70 03/26/2025 Fatty liver (ICD-10 - K76.0) Stable physical exam normal check LFTs. Send update ultrasound of liver 04/02/2025 Hip pain, unspecified laterality (ICD-10 - M25.559) Physical exam normal x-rays mild arthritis left hip arthroplasty right hip. Will recheck labs. Recommend Celebrex for 3 to 4 weeks. Add Tylenol for same duration. Physical therapy referral. If no improvement will need to see rheumatology and/or orthopedics 09/25/2024 Fatty liver disease, nonalcoholic (ICD-10 - K76.0) Set up liver ultrasound follow-up check LFTs weight loss diet and exercise 04/02/2025 Carotid artery disease, unspecified laterality, unspecified type (ICD-10 - I77.9) Stable recheck ultrasound yearly LDL goal less than 70 03/26/2025 Hip pain, unspecified laterality (ICD-10 - M25.559) Physical exam as above. Neurologically intact. Will check a CBC and sed rate. Check bilateral hip x-rays and spinal x-ray. Try Celebrex for 2 weeks 04/02/2025 Deficiency of vitamin B (ICD-10 - E53.9) 03/26/2025 Dorsalgia of lumbar region (ICD-10 - M54.50) No red flag symptoms neurologically intact check x-ray 04/02/2025 Low vitamin D level (ICD-10 - R79.89) 09/25/2024 Other Stable check LF Ts diet exercise weight management alcohol moderation 03/26/2025 Other Right inguinal hernia. Awaiting surgical consultation PLAN OF TREATMENT Pending Test Test Name Order Date MRI Abdomen with and without contrast: Joan ivadam Mass Protocol 04/16/2025 Echocardiogram 03/26/2025 Next Appt Details Provider Name:ELIS RODRIGUEZ, 09/24/2025 08:00:00 AM, [address] [place] [address], [phone], Insurance Providers Payer Name Payer Address Payer Phone Subscriber Number Group Number Insured Name Patient Relationship to Insured Coverage Start Date Coverage End Date [facility] [address] [place] [address] [id number] ANAIS ANGEL Self - patient is the insured 5 MEDICAL (GENERAL) HISTORY Medical History History ICD [...] May 2022 Elevated PSA to every 2023 [facility] urology Cardiology Dr. Antoine ov august 2023 Echo October 2023 mild hypokines is. EF 50%. Grade 1-2 diastolic dysfunction. Mild to moderate AI. Ascending aorta 3.9 cm Stress echo March 2024 EF 45 to 50% mi ld LVH significant AI Elevated PSA August 2024 follow-up [facility] urology follow-up Carotid ultrasound September 2024 normal Scrotal ultrasound by [facility] March 2025 left-sided septations question pyocele Bilateral hip x-rays March 2025 right arthroplasty left minimal degenerative arthritis Lumbar spine x-ray and plate osteophytes no acute process Surgical History Surgery Date(Month/Year) heart surgery- mitral valve repair with maze procedure Hip replacement 09/2009 foot surgery 1973
--- OUTSIDE RECORDS SUMMARY | 2025-05-05 08:27 | XMS_ITS | Clinical Summary ---
Author Organization [facility] Address [address] [place] [address] Care Team Providers Care Weaver Hand Loom Name Role Phone No, Pcp PRODUCTION POTTER Primary Care Provider Unavailabl e Social History Tobacco Use Types Packs/Day Years Used Date Smoking Tobacco: Never Assessed Sex and Gender Information Value Date Recorded Sex Assigned at Not on file Legal Sex Male 10:40 AM EST Gender Identity Not on file Sexual Orientation Not on file Plan of Treatment Not on file Medical Devices Not on file Care Teams Weaver Hand Loom Relationship Specialty Start Date End Date No, Pcp, PRODUCTION POTTER N/A Do not use PCP - General Family Medicine 06/06/20
--- OUTSIDE RECORDS SUMMARY | 2025-05-05 08:28 | XMS_ITS | Clinical Summary ---
Author Organization [facility] Address [address] [place] [address] Phone Care Team Providers Care Hybrid Technologist Name Role Phone Reza Estevez MD Primary Care Provider + [phone] Allergies No known active allergies Medications carvediloL [...] PM EST Procedure visit General Surgery - [address] [place] [address] Raul Lagunas, DO Melanoma in situ of torso excluding breast (CMS/HCC V24, CMS/HCC V28) (Primary Dx) 04/08/2025 9:15 AM EST Consult General Surgery [address] [address] Raul Lagunas, DO Melanoma in situ of torso excluding breast (CMS/HCC V24, CMS/HCC V28) (Primary Dx) from Last 3 Months Surgical History Surgery Date Site/Laterality Comments OTHER SURGICAL HISTORY PROCEDURE: [place] ANES HRT PERICRD SAC&GRT VSLS 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 >1MO PO; COMMENT: valve replacement patient was not sure which one OTHER SURGICAL HISTORY PROCEDURE: [place] BIOPSY PROSTATE INCISIONAL ANY APPROACH; COMMENT: Benign [...] Upcoming Encounters Date Type Department Care Team ([facility] Contact Info) Description 05/09/2025 10:00 AM EST Clinical Support General Surgery [address] [address] 05/16/2025 7:00 AM EST Ancillary Procedure [facility] - [address] [place] [address] Health Maintenance Due Date Last [...] atypical melanocytic proliferation identified 04/28/2025 10:58 AM [facility] at 1058 EST Clinical Information Melanoma in situ of torso excluding breast a D03.59 [id number] Right Mid Upper Back Melanoma in situ Medial Stitch @ 9 o'clock 04/28/2025 10:58 AM [facility] Gross Description A. Back, [...] specimen is sectioned in a cruciate manner. Scrap Baller sections are submitted as follows: 1, cruciate 9:00 and 3:00 tips (3:00 epidermis inked green), two pieces 2-4, sequential sections from 3:00 to 9:00, two pieces each KAYDEN 04/28/2025 10:58 AM [facility] Disclaimer Unless otherwise specified, all tissue is 10% NB formalin fixed and paraffin embedded. 04/28/2025 10:58 AM [facility] Tissue Structure of upper back / Unknown Non-blood Collection / Unknown 04/24/2025 3:05 PM EST 04/24/2025 3:08 PM EST Comment:[id number] Mi d Upper Back Melanoma in situMedial Stitch @ 9 o'clock us Raul Lagunas DO LAB PATHOLOGY ORDERABLES Final Result [facility] [address] [place] [address], from Last 3 Months Insurance [facility] MEDICARE Care Teams Hybrid Technologist Relationship Specialty Start Date End Date Reza Estevez MD [address] [place] [address] PCP - General Internal Medicine 10/01/24
[2025-05-05 12:01] LABS: PSA,Total (Free>4and<10) 3.75 ng/mL (0.00-4.00)
== END 2025-05-05 08:14 | disposition home or self-care (01) ==
LOC: HO.HMGCLDS 08:13
PROVIDERS: PCP Internal Medicine; Visit Provider Nurse Practitioner Family
DX: R97.20 Elevated prostate specific antigen [PSA] (principal); Z12.5 Encounter for screening for malignant neoplasm of prostate
CPT/HCPCS: 36415; 84153

== ENCOUNTER 2025-05-08 11:22 | Outpatient (AMB) | payer OTHER, SELFPAY ==
--- NOTE | 2025-05-08 11:26 | A.OFFVIS_ITS ---
Intake Visit Reasons: 8w/US/UA Intake Note: Patient is present for 8W/US/PSA/UA PSA:3.75 IMAGIN03/20/25 Urology Medication:FINASTERIDE Antibiotic Allergy:NONE Blood Thinner:ASPIRIN Patent Counsel Required: No Allergies No Known Allergies Allergy (Verified 05/08/25 13:28) Medication List - Last Reconciled 05/08/25 by Venice Anderson INSTRUMENTAL MUSIC TEACHER- aspirin 81 mg PO DAILY carvedilol 12.5 mg PO BID finasteride 5 mg PO DAILY 90 days lisinopril 20 mg PO DAILY rosuvastatin 40 mg PO DAILY HPI Comments Details: Tom is a very pleasant 65-year-old male patient of Dr. Estevez. He has a past medical history of hyperlipidemia, hypertension, and cardiac valve repair. He presents to the office today for follow-up of his scrotal swelling and elevated PSA. Of note, patient was seen approximately 2 months ago for ongoing scrotal swelling he had been experiencing at which time during physical assessment and inguinal hernia was noted. In discussion with the patient today he reports having followed up with General surgery and will be undergoing cardiac clearance tomorrow to have surgical repair of right inguinal hernia here at [facility] with Dr. Jose. Most recent scrotal ultrasound results were reviewed 03/29 moderate-sized right in small left scrotal fluid with internal septations may indicate pyocele. Mildly enlarged right testis. No evidence of epididymitis. He discusses his ongoing issues with his shoulders. He has been following up with [facility]. He also discusses his 7 lb weight loss over the last week and is unsure if this is related to his healthier eating habits. He reports he is compliant with finasteride as prescribed. We did discuss further assessment and evaluation of testicular swelling status post completion of inguinal hernia repair. He otherwise denies any bothersome urinary issues. He reports compliance with finasteride as prescribed. Of note, patient underwent prostate biopsy with Dr. Austin 01-26 noting chronic inflammation at which time he was started on finasteride. Previous workup has included an MRI of the prostate 10-26 noting ill-defined T2 hypointense lesion with obscured margins measuring 1.7 cm in the left posterolateral mid gland with moderate ADC and visualized s ignal abnormality (PI-RADS 3). PSAs are as follows: 02/25 6.0, 03/27 3.8 % free 24%, 08/26 5.0 % free 16%, 10/26 5.1 % free 13%, 08/27 5.8 free 20%, 01/27 2.9, 05/29 3.8 Previous work up has also included a retroperitoneal ultrasound 03/27 noting bilateral kidneys with no hydronephrosis and no renal calculi. There is a 1.1 cm lateral cyst with benign features. There is a 0.7 cm medial midpole cyst with benign features. Lateral 1.1 cm exophytic midpole cyst with benign features. There is no indication for follow up imaging. Per radiology report. The bladder is well distended. Diffuse thickening and irregularity with trabeculations. Bilateral ureteral jets are demonstrated. Pre void bladder volume is approximately 400 mL. Postvoid bladder volume is approximately 40 mL. Prostate volume is approximately 60 mL. In office urinalysis results reviewed with the patient today. All questions were answered. He otherwise offers no issues or concerns at this time. [facility] Medical History HTN (hypertension) Bunion Pain in hip region after hip replacement Surgical History (Updated 04/28/25 @ 10:02 by UGSTAVO Sanchez) History of open heart surgery Family History (Updated 04/28/25 @ 10:04 by GUSTAVO Sanchez) Mother Breast CA Social History (Updated 04/28/25 @ 10:03 by GUSTAVO Sanchez) Alcohol intake: never Patient Tobacco Use Status: Never used Tobacco Review of Systems Const All systems reviewed & are unremarkable except as noted in HPI and below Reports no additional complaints Eyes Reports no additional complaints ENT Reports no additional complaints Card Reports as per HPI Resp Reports no additional complaints GI Reports no additional complaints Reports as per HPI Musc Reports no additional complaints Neuro Reports no additional complaints Psych Reports no additional complaints Endo Reports no additional complaints Fabricio/Lymph Reports no additional complaints Aller/Immun Reports no additional complaints Physical Exam Const General: cooperative, healthy appearing, comfortable, no acute distress, well developed, alert and awake Nutritional Appearance: average body habitus Orientation/consciousness: patient oriented x3 Limitations: no limitations HEENT Head: Yes normal to inspection, Yes normocephalic and Yes atraumatic Ears: hearing grossly normal bilaterally Eyes General: appearance normal, both eyes and all related structures Neck Neck: Yes normal visual inspection and Yes trachea midline Chest Chest palpation & inspection: normal inspection of the chest Resp Effort & Inspection: normal respiratory effort and able to speak in complete sentences Cardio Rate: regular rate GI Inspection: Yes normal to inspection General: Yes no CVA tenderness Penis: normal penis and circumcised Meatus: meatus normal Scrotum: Hydrocele present Testes: Testes normal Back/Spine/Pelvis Back: no CVA tenderness Skin General skin exam: no rashes or lesions noted Neuro General: patient oriented x3 Extrem General: Yes normal to inspection Psych Appearance: grossly normal and well kempt Mental Status: mental status grossly normal Speech and movement: Clear speech present Affect: normal affect Attitude: cooperative Thought process: Normal thought process present Thought content: Normal thought content present Insight: Fair insight present (Psych) Judgement: Fair judgement present (Psych) Results AMB Urinalysis, Automated UA Leukoctes 0 Britta/uL Last Edit by RADHA Chen on 05/08/25 11:37 UA Nitrite Negative Last Edit by Gaurang Alonso CCM on 05/08/25 11:37 UA Urobilinogen 0.2 mg/dL Last Edit by Gaurang Alonso CCM on 05/08/25 11:3 7 UA Protein 0 mg/dL Last Edit by Gaurang Alonso CCM on 05/08/25 11:37 UA pH 6.0 Last Edit by Gaurang Alonso CCM on 05/08/25 11:37 UA Blood 0 Robinson/uL Last Edit by Gaurang Alonso CCM on 05/08/25 11:37 UA Specific Waldron 1.015 Last Edit by Gaurang Alonso CCM on 05/08/25 11: 37 UA Ketone Negative Last Edit by RADHA Chen on 05/08/25 11:37 UA Bilirubin 0 mg/dL Last Edit by Gaurang Alonso CCM on 05/08/25 11:37 UA Glucose 0 mg/dL Last Edit by Gaurang Alonso CCM on 05/08/25 11:37 Results Reviewed Results Reviewed: Laboratory Last Values Urine pH (Auto) 6.0 05/08/25 11:36 Specific Waldron (Auto) 1.015 05/08/25 11:36 Urine Protein (Auto) 0 mg/dL 05/08/25 11:36 Glucose (UA)(Auto) 0 mg/dL 05/08/25 11:36 Urine Ketones (Auto) Negative 05/08/25 11:36 Urine Blood (Auto) 0 Robinson/uL 05/08/25 11:36 Urine Nitrite (Auto) Negative 05/08/25 11:36 Urine Bilirubin (Auto) 0 mg/dL 05/08/25 11:36 Urine Urobilinogen (Auto) 0.2 mg/dL 05/08/25 11:36 Leukocyte Esterase (Auto) 0 Britta/uL 05/08/25 11:36 Date of Service: 03/19/25 Procedure(s): US scrotum Findings: The testes are normal in echotexture without lesions. Right testicular appendage. Normal arterial/venous color Doppler and arterial flow pattern. Right testis size, mildly enlarged: 4.6 x 3.1 x 3.2 cm, volume of 23.7mL. Left testis size, normal: 3.8 x 2.2 x 2.8 cm, volume of 12.4mL. The epididymides are normal in size and echotexture. Normal color Doppler. Moderate-sized right and small left scrotal fluid with internal septations. Bilateral varicocele. Right inguinal hernia. Impression: Moderate-sized right and small left scrotal fluid with internal septations may indicate pyoceles. Correlate clinically for signs/symptoms of infection. If there is a history of trauma resolving hematoceles could be considered. Mildly enlarged right testis. No evidence of epididymitis. Isolated orchitis is uncommon. Correlate clinically for signs/symptoms of infection. Assessment & Plan Assessment & Plan (1) Renal cyst: Code(s): N28.1 - Cyst of kidney, acquired Category: Medical (2) Nocturia: Code(s): R35.1 - Nocturia Category: Medical (3) Bladder trabeculation: Code(s): N32.89 - Other specified disorders of bladder Category: Medical (4) Elevated PSA: Code(s): R97.20 - Elevated prostate specific antigen [PSA] Category: Medical (5) Testicular swelling, right: Code(s): N50.89 - Other specified disorders of the male genital organs Category: Medical (6) Hydrocele: Code(s): N43.3 - Hydrocele, unspecified Category: Medical (7) Scrotum swelling: Code(s): N50.89 - Other specified disorders of the male genital organs Category: Medical Plan In office urinalysis results with the patient today; as noted above. Most recent scrotal ultrasound results reviewed with the patient today; as noted above. We discussed awaiting surgical repair of hernia to further assess potential for scrotal swelling. Currently denies any bothersome urinary issues or concerns. He reports be happy with current voiding parameters. Will continue with surveillance monitoring at this time. Continue finasteride as discussed and prescribed. All questions were answered. Will obtain PSA in 3-4 months. Follow-up in 3-4 months with PSA; or sooner with any issues, concerns, and or questions. Orders: Orders AMB Urinalysis Automated Today Z13.9 - Encounter for screening, unspecified PSA,Total (Free>4and<10) 3 Months R97.20 - Elevated prostate specific antigen [PSA] Patient Instructions: The patient had an opportunity to ask questions regarding the treatment plan. All questions were answered. Physical exam, labs, and imaging were discussed and reviewed in detail. As well as risks, benefits, and discussion of treatment choices. No major barriers to understanding were identified. The patient expressed understanding and agreement with the above treatment plan. The patient was made aware they should contact our office by phone for worsening of their current condition, the appearance of new symptoms, or with any questions or concerns. Compliance is encouraged with any medications and follow up testing that is ordered. It is a privilege to be allowed the opportunity to participate in? your urological care.? Again, if you have any questions or concerns If you have any questions or concerns please do not hesitate to contact me. The office is [phone]. This note is constructed using voice recognition software. While every effort has been made to ensure accuracy fish and wildlife biologist errors may have been included. Yours sincerely, BALTA Jaramillo Coding Level of Care Code Est Pt Level 3 (65961) Complex visit Add On G2211 Diagnoses Renal cyst N28.1 Nocturia R35.1 Bladder trabeculation N32.89 Elevated PSA R97.20 Testicular swelling, right N50.89 Hydrocele N43.3 Scrotum swelling N50.89
== END 2025-05-08 12:05 | disposition home or self-care (01) ==
LOC: HO.HUSH 11:23
PROVIDERS: PCP Internal Medicine; Visit Provider Nurse Practitioner Family
DX: N28.1 Cyst of kidney, acquired (principal); R35.1 Nocturia; N32.89 Other specified disorders of bladder; R97.20 Elevated prostate specific antigen [PSA]; N50.89 Other specified disorders of the male genital organs; N43.3 Hydrocele, unspecified; Z13.9 Encounter for screening, unspecified
CPT/HCPCS: 99213

== ENCOUNTER → 2025-05-08 11:22 | Outpatient (BNVA) | payer OTHER, SELFPAY | PROVIDERS: PCP Internal Medicine; Visit Provider Nurse Practitioner Family | DX: Z13.9 Encounter for screening, unspecified (principal) | CPT/HCPCS: 81003 ==